=== PATIENT | female | born 1950 | race Caucasian/White ===

== ENCOUNTER → 2018-04-12 12:32 | Outpatient (CLI) | payer MEDICARE, OTHER, SELFPAY ==
[2018-04-12 16:13] LABS: Occult Blood,Stool Negative (Negative)
== END ==
PROVIDERS: Visit Provider Surgery
DX: R19.5 Other fecal abnormalities (principal)
CPT/HCPCS: 82272; G0328

== ENCOUNTER → 2019-10-07 07:34 | Outpatient (CLI) | payer MEDICARE, OTHER, SELFPAY ==
--- NOTE | 2019-10-07 07:40 | MM_ITS ---
PROCEDURE: MM DIG SCREENING MAMM BI W/CAD CLINICAL INDICATION: Routine Mamm Screening There is no personal or family history of breast cancer COMPARISON: DMSB DIG MAMM-SCREEN JACQUELINE from 10/05/2014 DMSB DIG MAMM-SCREEN JACQUELINE from 07/25/2016 DMSB DIG MAMM-SCREEN JACQUELINE W/CAD from 09/28/2017 TECHNIQUE: Standard CC and MLO images were obtained. R2 CAD reviewed. FINDINGS: Scattered fibroglandular densities are seen throughout both breast in the findings of bilateral and symmetrical. There is benign-appearing calcification right breast. There is minimal arterial calcification left breast. There are fatty replaced nodes in both axilla. There is no suspicious lesion and no suspicious microcalcifications. IMPRESSION: Fibrofatty parenchyma with no suspicious lesions seen BI-RAD Category: 2 Benign Finding(s) FOLLOW-UP: 1YR 1 Year Follow-up (A letter has been sent to the patient regarding results of the study.) Dictated by: Dr. Nick Kelly MD 10/08/2019 09:[address] Nick Kelly MD in [place] 10/08/2019 09:43
== END ==
PROVIDERS: PCP Internal Medicine; Visit Provider Obstetrics & Gynecology
DX: Z12.31 Encounter for screening mammogram for malignant neoplasm of breast (principal)
CPT/HCPCS: 77067

== ENCOUNTER → 2020-01-12 09:59 | Outpatient (CLI) | payer MEDICARE, OTHER, SELFPAY ==
[2020-01-12 10:31] LABS: Hemoglobin 13.6 g/dL (12.2-16.2)
== END ==
PROVIDERS: Visit Provider Surgery
DX: K92.1 Melena (principal)
CPT/HCPCS: 36415; 85014; 85018

== ENCOUNTER → 2020-01-13 12:23 | Outpatient (CLI) | payer MEDICARE, OTHER, SELFPAY ==
[2020-01-13 13:31] LABS: Occult Blood,Stool Negative (Negative)
== END ==
PROVIDERS: Visit Provider Surgery
DX: R19.5 Other fecal abnormalities (principal)
CPT/HCPCS: 82272; G0328

== ENCOUNTER → 2020-04-07 09:54 | Outpatient (CLI) | payer MEDICARE, OTHER, SELFPAY ==
[2020-04-07 11:31] LABS: Hematocrit 43.2 % (37.0-47.0); Hemoglobin 14.3 g/dL (12.2-16.2)
[2020-04-07 12:15] LABS: Coronavirus 19 IgG Antibody Negative (Negative); Coronavirus 19 IgM Antibody Negative (Negative)
[2020-04-08 11:35] LABS: Occult Blood,Stool Negative (Negative)
== END ==
PROVIDERS: Visit Provider Surgery
DX: Z01.818 Encounter for other preprocedural examination (principal)
CPT/HCPCS: 36415; 82272; 85014; 85018; 86328; G0328

== ENCOUNTER 2020-04-08 07:32 | Day surgery (SDC) | payer MEDICARE, OTHER, SELFPAY ==
--- NOTE | 2020-04-06 09:55 | SUR.PREOP ---
04/06/2020 @ 472--PHONE CALL MADE TO PATIENT. PATIENT UNDERSTANDS THAT LAB WORK AND COVID TESTING NEEDS TO BE COMPLETED @ 945 ON 04/07/2020. PATIENT UNDERSTANDS IF LAB WORK AND COVID-19 TESTS ARE NOT COMPLETED BY 12PM ON THAT DATE, THE SURGERY SCHEDULED WILL BE CANCELLED AND RESCHEDULED FOR ANOTHER TIME.
[2020-04-08 07:45] VITALS: BMI 38.9
[2020-04-08 07:52] VITALS: BP 145/72; PULSE 75; RESP 20; TEMP 36.5; O2SAT 98
--- NOTE | 2020-04-08 07:58 | HMH.ANESCL ---
[facility] Anesthesia Checklist - Patient Identification Patient Identification: Arm Band, Verbal (Name & ) - Structural Data Admitted From: Home Planned Operative Procedure/s: Colonoscopy Consent for Planned Operative Procedure(s) Verified: Yes Verified Documents: Surgical Consent, History and Physical - NPO Status Verified Time NPO: 00:00 - Chart Verification Results Verified: CBC - Additional verifications Anesthesia Reactions: No - Airway Assessment C-Spine Mobility Assessed: Yes TMJ Mobility Assessed: Yes Dentition: Good Dentition - Neurological Assessment Level of Consciousness: Awake, Alert, Appropriate, Follows Commands Hx Seizures: No Numbness or tingling in extremities: No - Anesthesia Plan Anesthesia Risk discussed: Yes Anesthesia Plan: Verified ASA Class: III Anesthesia Type: MAC [facility] History I have reviewed the patient's past medical history: Yes 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: Reports:: Gastroesophageal Reflux Disease(GERD), Hypertension *Have you ever received a pneumonia vaccine?: Yes *Have you received a flu vaccine this season?: Yes Other 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: Reports: Other Comment:: obesity, chronic back/leg pain Anesthesia experience/problems:: none Other Surgeries: Yes: Appendectomy, Colonoscopy, EGD, Tubal Ligation Amputation: No Fractures: No - *Social History Smoking Status: Never smoker Alcohol Intake: never Alcohol Intake Frequency:: other Substance Use Type: denies use *Occupational Status:: retired *Travel in the last 8 weeks: None Family Hx:: Cancer
[2020-04-08 08:12] VITALS: O2SAT 99
[2020-04-08 08:43] VITALS: BP 96/49; PULSE 64; RESP 18; TEMP 36.4; O2SAT 94
--- NOTE | 2020-04-08 08:48 | HMH.SCOPE ---
- Procedure: Date: 04/08/20 Procedure Performed:: Colonoscopy with polypectomy by means other than snare Indications:: Screening Performing Provider:: Clay Bradford MD Referring Provider:: . Sedation:: Monitored anesthesia care Procedure:: After informed consent was obtained the patient was taken to the endoscopy suite. Sedation ensued after the patient was transferred to the left lateral decubitus position. Pulse, blood pressure, and oxygen saturation were monitored throughout the procedure. Digital rectal exam revealed no significant abnormality. The colonoscope was placed in position. The entire colon was evaluated. The colonoscope was carefully removed and the patient was transferred to recovery in stable condition. Please see findings and specimens below for detail. Findings:: Bowel preparation fair to moderate Mild hemorrhoidal tags Fairly significant lack of relaxation Scattered sigmoid diverticulosis Polyps (see specimens) Specimens:: Adjacent sessile cecal polyps Adjacent polyps at 75 cm Recommendations:: Repeat colonoscopy is pending pathology but will likely be around 3 years secondary to polyps, slightly-limiting bowel preparation, and lack of relaxation. Complications:: No immediate Estimated blood obtained (mL): 1
[2020-04-08 08:54] VITALS: BP 101/63; PULSE 64; RESP 18; TEMP 36.4; O2SAT 95
[2020-04-08 09:04] VITALS: BP 105/59; PULSE 50; RESP 18; TEMP 36.4; O2SAT 96
[2020-04-08 09:25] VITALS: BP 113/56; PULSE 53; RESP 18; TEMP 36.4; O2SAT 96
== END 2020-04-08 09:25 | disposition home or self-care (01) ==
LOC: OUTP 07:34
PROVIDERS: PCP Internal Medicine; Visit Provider Surgery
PROC: 0DJD8ZZ Inspection of Lower Intestinal Tract, Via Natural or Artificial Opening Endoscopic (ICD-10-PCS; CPT 45380; principal; 2020-04-08 08:00)
DX: Z12.11 Encounter for screening for malignant neoplasm of colon (principal); K64.9 Unspecified hemorrhoids; K63.5 Polyp of colon; K57.30 Diverticulosis of large intestine without perforation or abscess without bleeding; Z80.0 Family history of malignant neoplasm of digestive organs; Z88.0 Allergy status to penicillin; Z88.8 Allergy status to other drugs, medicaments and biological substances; Z79.899 Other long term (current) drug therapy; Z79.82 Long term (current) use of aspirin; I10 Essential (primary) hypertension; Z90.49 Acquired absence of other specified parts of digestive tract
CPT/HCPCS: 45380; 88305

== ENCOUNTER → 2020-08-23 11:12 | Outpatient (CLI) | payer MEDICARE, OTHER, SELFPAY ==
--- NOTE | 2020-08-23 11:20 | XR_ITS ---
PROCEDURE: XR HIP LT 2-3V W/PELVIS CLINICAL INDICATION: L HIP PAIN COMPARISON: CR,DX BONE BONE DENSITOMETRY(HIP:LT SPINE from 02/02/2014 FINDINGS: There are mild osteoarthritic changes of the hips. No fracture or dislocation. No lytic or blastic change. IMPRESSION: Mild osteoarthritis of the hips Dictated by: Andrea Gore MD 08/23/2020 12:31 Andrea Gore MD in [place] 08/23/2020 12:31
--- NOTE | 2020-08-23 11:21 | XR_ITS ---
PROCEDURE: XR KNEE RT 3V CLINICAL INDICATION: RT KNEE PAIN COMPARISON: No exams were available for comparison FINDINGS: No fracture or dislocation. No lytic or blastic change. There is normal mineralization. There are severe osteoarthritic changes of the medial compartment with severe osteoarthritis of the patellofemoral joint. Prominent osteophytes are present about the knee joint Other findings:None. IMPRESSION: Severe osteoarthritis of the right knee. Dictated by: Andrea Gore MD 08/23/2020 12:30 Andrea Gore MD in [place] 08/23/2020 12:30
== END ==
PROVIDERS: PCP Internal Medicine; Visit Provider Internal Medicine
DX: M25.552 Pain in left hip (principal); M25.561 Pain in right knee
CPT/HCPCS: 73502; 73562

== ENCOUNTER → 2020-10-21 10:02 | Outpatient (CLI) | payer MEDICARE, OTHER, SELFPAY ==
--- NOTE | 2020-10-21 10:02 | MM_ITS ---
PROCEDURE: MM DIG SCREENING MAMM BI W/CAD Referring Doctor: Alfred Crow Patient Age:69Y CLINICAL INDICATION: screening xmg 69-year-old no hormones no new complaints noncontributory family history COMPARISON: MG DIGMAMMS MAMMOGRAM SCREEN-HYBRID CORN BREEDER N/C from 03/05/2008 MG DIGMAMMS MAMMOGRAM SCREEN-HYBRID CORN BREEDER N/C from 07/30/2009 MG DMSB DIGITAL MAMM-SCREEN BILATERAL from 10/25/2010 MG DMSB DIGITAL MAMM-SCREEN BILATERAL from 02/12/2012 MG DMSB DIG MAMM-SCREEN JACQUELINE from 09/03/2013 MG DMSB DIG MAMM-SCREEN JACQUELINE from 10/05/2014 MG DMSB DIG MAMM-SCREEN JACQUELINE from 07/25/2016 MG DMSB DIG MAMM-SCREEN JACQUELINE W/CAD from 09/28/2017 MG MM DIG SCREENING MAMM BI W/CAD from 10/07/2019 TECHNIQUE: Standard CC and MLO images were obtained. R2 CAD reviewed. Bilateral digital breast tomosynthesis included. Additional axillary CC views both breast FINDINGS: Minimal residual fibroglandular elements most evident at the retroareolar region. No new dominant or suspicious mass. No suspicious calcifications but Right breast no significant new findings Stable minor nodular densities since last year. Continue to suggest follow-up in 1 year. Left breast: Stable no new findings . Stable mild area of asymmetry at the lateral left breast the IMPRESSION: . No significant new findings Stable mammogram Ongoing annual follow-up mammogram recommended and should be encouraged BI-RAD Category: 2 Benign Finding(s) FOLLOW-UP: 1YR 1 Year Follow-up (A letter has been sent to the patient regarding results of the study.) Dictated by: Arron Whitten MD 10/21/2020 11:34 Arron Whitten MD in [place] 10/21/2020 11:34
== END ==
PROVIDERS: PCP Internal Medicine; Visit Provider Nurse Practitioner Obstetrics & Gynecology
DX: Z12.31 Encounter for screening mammogram for malignant neoplasm of breast (principal)
CPT/HCPCS: 77063; 77067

== ENCOUNTER → 2020-12-10 09:39 | Outpatient (CLI) | payer MEDICARE, OTHER, SELFPAY ==
[2020-12-10 10:31] LABS: Basophils # 0.1 K/mm3 (0-0.2); Basophils % 1.1 % (0.1-2.0); Eosinophils # 0.4 K/mm3 (0.0-0.4); Eosinophils % 5.1 % (0.1-12.0); Hematocrit 46.9 % (37.0-47.0); Hemoglobin 15.6 g/dL (12.2-16.2); Lymphocytes # 2.1 K/mm3 (0.7-4.5); Lymphocytes % 29.9 % (10-50); Mean Corpuscular HGB Conc 33.4 g/dL (31.8-35.4); Mean Corpuscular Hemoglobin 31.1 pg (27.0-31.2); Mean Platelet Volume 7.8 fl (7.4-10.4); Monocytes # 0.4 K/mm3 (0.1-1.0); Monocytes % 5.4 % (1.7-9.3); Neutrophils # 4.2 K/mm3 (1.8-7.8); Neutrophils % 58.4 % (37.0-80.0); Platelet Count 271 K/mm3 (142-424); Red Blood Count 5.04 M/mm3 (4.20-5.40); Red Cell Distribution Width 13.9 % (11.5-17.5); White Blood Count 7.1 K/mm3 (4.8-10.8)
[2020-12-10 10:46] LABS: Alanine Aminotransferase 21 U/L (12-78); Albumin Level 4.2 g/dl (3.5-5.0); Albumin/Globulin Ratio 1.4 (1.1-1.8); Alkaline Phosphatase 66 U/L (38-126); Anion Gap 11.3 mEq/L (5-15); Aspartate Amino Transferase 25 U/L (14-36); Bilirubin,Total 0.7 mg/dl (0.2-1.3); Blood Urea Nitrogen 20 mg/dl (7-17); Calcium 9.7 mg/dl (8.4-10.2); Carbon Dioxide 31 mmol/L (22.0-30.0); Chloride 104 mmol/L (98-107); Chol/HDL Ratio 3.4 (1-3.5); Cholesterol 172 mg/dl (140-200); Estimated Glomerular Filt Rate 71 ml/min (>60); GFR (African American) 86 ML/MIN (>60); Globulin 3.1 g/dL (1.3-3.2); Glucose 103 mg/dl (74-100); HDL Cholesterol 50 mg/dl (40-60); Potassium 4.3 mmoL/L (3.5-5.1); Sodium 142 mmol/L (136-145); Total Protein,Serum 7.3 g/dl (6.3-8.2); Triglycerides 103 mg/dl (30-150); VLDL Cholesterol 21 mg/dL (0-40)
[2020-12-10 10:57] LABS: Direct LDL Cholesterol 91.23 mg/dL (100-129)
== END ==
PROVIDERS: Visit Provider Internal Medicine
DX: I10 Essential (primary) hypertension (principal); E78.5 Hyperlipidemia, unspecified; E03.9 Hypothyroidism, unspecified; M15.0 Primary generalized (osteo)arthritis
CPT/HCPCS: 36415; 80053; 80061; 84443; 85025

== ENCOUNTER 2021-02-28 17:14 | Emergency (ER) | payer MEDICARE, OTHER, SELFPAY ==
--- NOTE | 2021-02-28 17:42 | XR_ITS ---
PROCEDURE: XR HIP RT 2-3V W/PELVIS CLINICAL INDICATION: TWISTED HIP Pain COMPARISON: CR XR HIP LT 2-3V W/PELVIS from 08/23/2020 FINDINGS: No fracture or dislocation is evident. No significant degenerative change. No lytic or blastic change. Unremarkable soft tissues. There is some sclerosis involving the basicervical region of the right femoral neck nonspecific IMPRESSION: No acute findings. Dictated by: Andrea Gore MD 02/28/2021 19:22 Andrea Gore MD in [place] 02/28/2021 19:22
[2021-02-28 18:19] VITALS: RESP 14; TEMP 37; O2SAT 99; BMI 39.4
--- NOTE | 2021-02-28 19:11 | HMH.EDUTC ---
[facility] [place] [facility] [place] Clinical Impression: Right hip pain Fall Qualifiers: Encounter type: initial encounter Qualified Code(s): W19.XXXA - Unspecified fall, initial encounter Disposition: Home, Self-Care Condition on Discharge: Good Instructions: DI for Hip Pain Additional Instructions: Rest the extremity, apply ice for 15 minutes as tolerated three or four times per day, Elevate the extremity as tolerated while you are resting. Take ibuprofen for pain. I sent in a prescription to your pharmacy. Follow up with Dr. Mcgee (orthopedics). Sometimes there can be fractures that don't show up well on the first set of x-rays. So, you should follow up if you continue to have symptoms. I put in a referral but you need to call her office and schedule an appointment. Follow up with your regular doctor. GO TO THE ER FOR ANY WORSENING SYMPTOMS Referrals: Rk Sanderson [Primary Care Provider] - Pat Mcgee MD [Physician] - Time of Disposition: 19:13 Medical Decision Making - Medical Records Medical records reviewed: No: I reviewed the patient's medical records. - [place] Inquiry Pt receiving controlled substance: No Vital Signs: 02/28/21 18:19 02/28/21 19:18 Temperature 98.6 F 98.5 F Temperature Source Oral Oral Pulse Rate 65 Respiratory Rate 14 16 Blood Pressure 160/58 H 02 Sat by Pulse Oximetry 99 Oxygen Delivery Method Room Air - Radiology Data #1 Image(s): Hip Image Reviewed: Yes I reviewed the patient's radiology image, Yes I have reviewed radiologist's interpretation Preliminary Findings: No Fracture Seen PROCEDURE: XR HIP RT 2-3V W/PELVIS CLINICAL INDICATION: TWISTED HIP Pain COMPARISON: CR XR HIP LT 2-3V W/PELVIS from 08/23/2020 FINDINGS: No fracture or dislocation is evident. No significant degenerative change. No lytic or blastic change. Unremarkable soft tissues. There is some sclerosis involving the basicervical region of the right femoral neck nonspecific IMPRESSION: No acute findings. Dictated by: Andrea Gore MD 02/28/2021 19:22 Andrea Gore MD in [place] 02/28/2021 19:22 [facility] [place] [facility] [place] HPI - General Stated complaint: AO 1630 fall injured hip Time Seen by Provider: 02/28/21 18:25 Mode of Arrival: Ambulatory Source of Information: Patient Limitations: No Limitations Description of Symptoms (Recalled from Triage Doc. by RN): tripped and twisted at right hip HEENT Symptoms (Recalled from RN notes): No Resp Symptoms (Recalled from RN notes): No Skin Symptoms (Recalled from RN notes): No MS Symptoms (Recalled from RN notes): Yes Functional Status (Recalled from RN notes): na - History of Present Illness Provider Complaint: She states that she fell about 30 minutes ferry [place] [employer]. She came down on her right hip. She has had right hip pain since. She states it hurts worse to walk or bear weight on the hip. - Related Data Home Medications Medication Instructions Recorded Confirmed amlodipine 5 mg tablet 5 mg PO ONCE 04/10/18 04/14/20 aspirin 81 mg tablet,delayed 81 mg PO ONCE 04/10/18 04/14/20 release atenolol 50 mg tablet 50 mg PO ONCE 04/10/18 04/14/20 hydrocodone bitartrate 10 mg 10 mg PO Q12H 04/10/18 04/14/20 capsule, oral only, extended rel 12 hr meloxicam 15 mg tablet 15 mg PO ONCE 04/10/18 04/14/20 oxybutynin chloride 10 mg 10 mg PO ONCE 04/10/18 04/14/20 tablet,extended release 24 hr famotidine 20 mg tablet 20 mg PO DAILY #180 tab 10/02/19 04/14/20 Allergies Allergy/AdvReac Type Severity Reaction Status Date / Time enoxaparin [From LOVENOX] Allergy Unknown I-HIVES Verified 04/14/20 09:58 Penicillins [PENICILLINS] Allergy Unknown I-RASH Verified 04/14/20 09:58 rofecoxib [From VIOXX] Allergy Unknown SWELLING Verified 04/14/20 09:58 - Worker's Comp Is this a Worker's Comp case?: No H History - Hepatitis A Screen Drug use history?: No High risk sexual behaviors?: No History of sexually transmitted infection?: No Cur
[2021-02-28 19:18] VITALS: BP 160/58; PULSE 65; RESP 16; TEMP 36.9; O2SAT 97
== END 2021-02-28 19:19 | disposition home or self-care (01) ==
PROVIDERS: Emergency Provider Nurse Practitioner Family; PCP Internal Medicine
DX: M25.551 Pain in right hip (principal); W01.0XXA Fall on same level from slipping, tripping and stumbling without subsequent striking against object, initial encounter; Y92.9 Unspecified place or not applicable; K21.9 Gastro-esophageal reflux disease without esophagitis; I10 Essential (primary) hypertension; Z88.0 Allergy status to penicillin; Z79.899 Other long term (current) drug therapy
CPT/HCPCS: G0463; 73502; 99202

== ENCOUNTER → 2021-10-03 10:06 | Outpatient (CLI) | payer MEDICARE, OTHER, SELFPAY ==
[2021-10-03 10:21] LABS: Microscopic, Urine URINE MICROSCOPIC (MICROSCOPIC)
--- NOTE | 2021-10-03 10:36 | ECG_ITS ---
APPROVED REPORT Exam: Resting ECG HR:49 bpm ECG Measurements Heart Rate 49 AXES [place] 186 P -6 QRSd 96 QRS -23 QT 436 T -4 QTc 393 Conclusion Marked sinus bradycardia Poor R Wave Progression Abnormal ECG Electronically signed by : Rk Sanderson MD 10/21/2021 16:22:09
[2021-10-03 10:45] LABS: Basophils # 0.1 K/mm3 (0-0.2); Basophils % 1.4 % (0.1-2.0); Eosinophils # 0.5 K/mm3 (0.0-0.4); Eosinophils % 6.7 % (0.1-12.0); Hematocrit 47.2 % (37.0-47.0); Hemoglobin 15.4 g/dL (12.2-16.2); Lymphocytes % 27.6 % (10-50); Mean Corpuscular HGB Conc 32.6 g/dL (31.8-35.4); Mean Corpuscular Hemoglobin 30.9 pg (27.0-31.2); Mean Corpuscular Volume 94.8 fl (81-99); Mean Platelet Volume 8.7 fl (7.4-10.4); Monocytes # 0.4 K/mm3 (0.1-1.0); Monocytes % 5.4 % (1.7-9.3); Neutrophils # 4.2 K/mm3 (1.8-7.8); Neutrophils % 58.9 % (37.0-80.0); Platelet Count 294 K/mm3 (142-424); Red Blood Count 4.98 M/mm3 (4.20-5.40); Red Cell Distribution Width 13.6 % (11.5-17.5); White Blood Count 7.1 K/mm3 (4.8-10.8)
[2021-10-03 10:49] LABS: Appearance,Urine CLEAR (Clear); Blood, Urine Negative (Negative); Color,Urine YELLOW (Yellow); Glucose,Urine (UA) Negative (Negative); Ketones,Urine TRACE (Negative); Leukocyte Esterase,Urine 1+ (Negative); Nitrate,Urine POSITIVE (Negative); PH,Urine 5.5 (5.0-8.5); Protein,Urine Negative (Negative); Specific Gravity, Urine >= 1.030 (1.005-1.030); Urobilinogen,Urine 0.2 EU/dl (0.2)
[2021-10-03 10:50] LABS: Bilirubin,Urine 1+ (Negative)
[2021-10-03 10:58] LABS: Activated Partial Thrombo Time 29.2 seconds (22.8-30.6); INR 0.96 (0.9-1.1); Prothrombin Time 10.9 seconds (10.1-12.5)
[2021-10-03 11:25] LABS: Hemoglobin A1C 5.8 % (4.0-6.0)
[2021-10-03 11:31] LABS: Bacteria,Urine 2+ /lpf
[2021-10-03 11:37] LABS: Alanine Aminotransferase 19 U/L (12-78); Albumin Level 4.2 g/dl (3.5-5.0); Albumin/Globulin Ratio 1.5 (1.1-1.8); Alkaline Phosphatase 58 U/L (38-126); Anion Gap 9.1 mEq/L (5-15); Aspartate Amino Transferase 31 U/L (14-36); Bilirubin,Total 0.6 mg/dl (0.2-1.3); Blood Urea Nitrogen 21 mg/dl (7-17); Calcium 9.5 mg/dl (8.4-10.2); Carbon Dioxide 33 mmol/L (22.0-30.0); Chloride 105 mmol/L (98-107); Estimated Glomerular Filt Rate 71 ml/min (>60); GFR (African American) 86 ML/MIN (>60); Globulin 2.8 g/dL (1.3-3.2); Glucose 98 mg/dl (74-100); Potassium 4.1 mmoL/L (3.5-5.1); Sodium 143 mmol/L (136-145)
[2021-10-25 14:29] LABS: Nicotine <1.0
[2021-10-25 14:30] LABS: Cotinine <1.0
== END ==
PROVIDERS: Visit Provider Internal Medicine
DX: Z01.818 Encounter for other preprocedural examination (principal); I10 Essential (primary) hypertension; N32.81 Overactive bladder; M17.11 Unilateral primary osteoarthritis, right knee; Z51.81 Encounter for therapeutic drug level monitoring; B96.20 Unspecified Escherichia coli [E. coli] as the cause of diseases classified elsewhere; B95.62 Methicillin resistant Staphylococcus aureus infection as the cause of diseases classified elsewhere; Z79.899 Other long term (current) drug therapy
CPT/HCPCS: 36415; 80053; 80323; 81001; 83036; 85025; 85610; 85730; 87081; 87086; 87088; 87186; 93005

== ENCOUNTER → 2021-10-17 10:19 | Outpatient (CLI) | payer MEDICARE, OTHER, SELFPAY | PROVIDERS: Visit Provider Internal Medicine | DX: A49.02 Methicillin resistant Staphylococcus aureus infection, unspecified site (principal) | CPT/HCPCS: 87081 ==

== ENCOUNTER → 2021-10-24 09:45 | Outpatient (CLI) | payer MEDICARE, OTHER, SELFPAY ==
--- NOTE | 2021-10-24 09:46 | MM_ITS ---
PROCEDURE INFORMATION: Exam: MG Bilateral Screening 3D Mammography Exam date and time: 10/24/2021 9:46 AM Age: 70 years old Clinical indication: Routine screening mammogram TECHNIQUE: Imaging protocol: Bilateral screening tomosynthesis and 2D mammography including computer-aided detection (CAD) when performed. COMPARISON: 1. MG MM DIG SCREENING MAMM BI W/CAD 10/21/2020 10:10 AM 2. MG MM DIG SCREENING MAMM BI W/CAD 10/07/2019 8:12 AM FINDINGS: MAMMOGRAPHY: Breast composition: The breast tissue is composed of scattered areas of fibroglandular density. Mass: None. Architectural distortion: None. Calcifications: No suspicious calcifications. Asymmetric density: None. Skin thickening: None. Axillary adenopathy: None. IMPRESSION: No mammographic evidence of malignancy. Annual screening is recommended unless otherwise clinically indicated. ASSESSMENT: BI-RADS Category 1: Negative
== END ==
PROVIDERS: PCP Internal Medicine; Visit Provider Nurse Practitioner Obstetrics & Gynecology
DX: Z12.31 Encounter for screening mammogram for malignant neoplasm of breast (principal)
CPT/HCPCS: 77063; 77067

== ENCOUNTER → 2021-10-25 15:51 | Outpatient (CLI) | payer MEDICARE, OTHER, SELFPAY ==
[2021-10-25 15:59] LABS: Microscopic, Urine URINE MICROSCOPIC (MICROSCOPIC)
[2021-10-25 17:14] LABS: Appearance,Urine CLEAR (Clear); Bilirubin,Urine Negative (Negative); Blood, Urine Negative (Negative); Color,Urine YELLOW (Yellow); Glucose,Urine (UA) Negative (Negative); Ketones,Urine Negative (Negative); Leukocyte Esterase,Urine Negative (Negative); Nitrate,Urine POSITIVE (Negative); PH,Urine 5.5 (5.0-8.5); Protein,Urine Negative (Negative); Specific Gravity, Urine 1.025 (1.005-1.030); Urobilinogen,Urine 0.2 EU/dl (0.2)
[2021-10-25 18:37] LABS: Bacteria,Urine 3+ /lpf; WBC,Urine Occasional #/hpf (0-3)
[2021-10-25 18:38] LABS: 25-OH Vitamin D, Total 27.4 ng/mL (30-100)
== END ==
PROVIDERS: Visit Provider Internal Medicine
DX: Z01.818 Encounter for other preprocedural examination (principal); E55.9 Vitamin D deficiency, unspecified; R82.90 Unspecified abnormal findings in urine; B96.20 Unspecified Escherichia coli [E. coli] as the cause of diseases classified elsewhere
CPT/HCPCS: 36415; 81001; 82306; 87086; 87088; 87186

== ENCOUNTER → 2021-12-09 15:04 | Outpatient (CLI) | payer MEDICARE, OTHER, SELFPAY ==
[2021-12-09 16:38] LABS: Microscopic, Urine URINE MICROSCOPIC (MICROSCOPIC)
[2021-12-09 19:20] LABS: Appearance,Urine CLEAR (Clear); Blood, Urine 1+ (Negative); Color,Urine YELLOW (Yellow); Glucose,Urine (UA) Negative (Negative); Ketones,Urine TRACE (Negative); Leukocyte Esterase,Urine 2+ (Negative); Nitrate,Urine Negative (Negative); PH,Urine 5.5 (5.0-8.5); Protein,Urine TRACE (Negative); Specific Gravity, Urine >= 1.030 (1.005-1.030); Urobilinogen,Urine 0.2 EU/dl (0.2)
[2021-12-09 19:30] LABS: Bilirubin,Urine 1+ (Negative)
[2021-12-09 19:33] LABS: Bacteria,Urine 1+ /lpf; RBC,Urine 20-50 #/hpf (0-3); WBC,Urine 50-100 #/hpf (0-3)
== END ==
PROVIDERS: Visit Provider Internal Medicine
DX: N39.0 Urinary tract infection, site not specified (principal); B96.20 Unspecified Escherichia coli [E. coli] as the cause of diseases classified elsewhere
CPT/HCPCS: 81001; 87086; 87088; 87186

== ENCOUNTER → 2022-04-12 16:49 | Outpatient (CLI) | payer MEDICARE, OTHER, SELFPAY ==
[2022-04-12 17:50] LABS: Chloride 105 mmol/L (98-107); Potassium 4.4 mmoL/L (3.5-5.1); Sodium 138 mmol/L (136-145)
[2022-04-12 17:52] LABS: Alanine Aminotransferase 17 U/L (12-78); Alkaline Phosphatase 74 U/L (38-126); Aspartate Amino Transferase 22 U/L (14-36); Bilirubin,Total 0.4 mg/dl (0.2-1.3); Blood Urea Nitrogen 24 mg/dl (7-17); Estimated Glomerular Filt Rate 71 ml/min (>60); GFR (African American) 85 ML/MIN (>60)
[2022-04-12 17:53] LABS: Albumin/Globulin Ratio 1.5 (1.1-1.8); Anion Gap 10.4 mEq/L (5-15); Calcium 9.6 mg/dl (8.4-10.2); Carbon Dioxide 27 mmol/L (22.0-30.0); Chol/HDL Ratio 4.8 (1-3.5); Cholesterol 159 mg/dl (140-200); Globulin 2.6 g/dL (1.3-3.2); Glucose 108 mg/dl (74-100); HDL Cholesterol 33 mg/dl (40-60); Total Protein,Serum 6.6 g/dl (6.3-8.2); Triglycerides 182 mg/dl (30-150); VLDL Cholesterol 36 mg/dL (0-40)
[2022-04-12 18:04] LABS: Direct LDL Cholesterol 86.48 mg/dL (100-129)
[2022-04-12 18:16] LABS: Basophils # 0.1 K/mm3 (0-0.2); Basophils % 1.3 % (0.1-2.0); Eosinophils # 0.4 K/mm3 (0.0-0.4); Eosinophils % 4.6 % (0.1-12.0); Hematocrit 42.9 % (37.0-47.0); Lymphocytes # 3.2 K/mm3 (0.7-4.5); Lymphocytes % 42.3 % (10-50); Mean Corpuscular HGB Conc 32.7 g/dL (31.8-35.4); Mean Corpuscular Hemoglobin 30.2 pg (27.0-31.2); Mean Corpuscular Volume 92.6 fl (81-99); Mean Platelet Volume 8.6 fl (7.4-10.4); Monocytes # 0.4 K/mm3 (0.1-1.0); Monocytes % 5.9 % (1.7-9.3); Neutrophils # 3.5 K/mm3 (1.8-7.8); Neutrophils % 45.9 % (37.0-80.0); Platelet Count 313 K/mm3 (142-424); Red Blood Count 4.63 M/mm3 (4.20-5.40); Red Cell Distribution Width 13.8 % (11.5-17.5); White Blood Count 7.6 K/mm3 (4.8-10.8)
== END ==
LOC: LAB 16:49 → LAB.DROPOF 16:53
PROVIDERS: PCP Internal Medicine; Visit Provider Internal Medicine
DX: I10 Essential (primary) hypertension (principal); I83.893 Varicose veins of bilateral lower extremities with other complications; K21.9 Gastro-esophageal reflux disease without esophagitis; M17.0 Bilateral primary osteoarthritis of knee; N32.81 Overactive bladder
CPT/HCPCS: 80053; 80061; 85025

== ENCOUNTER 2022-09-18 17:21 | Emergency (ER) | payer MEDICARE, OTHER, SELFPAY ==
[2022-09-18 17:23] VITALS: BP 141/84; PULSE 100; RESP 18; TEMP 37.4; O2SAT 95; BMI 34.3
--- NOTE | 2022-09-18 17:31 | XR_ITS ---
PROCEDURE INFORMATION: Exam: XR Chest Exam date and time: 09/18/2022 5:54 PM Age: 71 years old Clinical indication: Shortness of breath; Additional info: Sob/cp TECHNIQUE: Imaging protocol: Radiologic exam of the chest. Views: 1 view. COMPARISON: No relevant prior studies available. FINDINGS: Lungs: No evidence of pneumonia or interstitial edema. Punctate granuloma in right lower lobe Pleural spaces: Unremarkable. No pleural effusion. No pneumothorax. Heart/Mediastinum: Unremarkable. No cardiomegaly. Bones/joints: Unremarkable. IMPRESSION: No evidence of pneumonia or interstitial edema.
--- NOTE | 2022-09-18 17:45 | PC.NURSE ---
XR AT BEDSIDE
[2022-09-18 17:52] VITALS: BP 130/65; PULSE 101; RESP 18; O2SAT 95
--- NOTE | 2022-09-18 17:54 | HMH.EDGENADL ---
Discharge Plan Disposition Patient Disposition: Home, Self-Care Condition: Good Prescriptions Prescriptions: New promethazine 25 mg suppository 25 mg GA Q6H PRN (Reason: sleep) Qty: 12 0RF No Action tramadol 50 mg tablet 50 mg PO Q6H PRN oxycodone 5 mg tablet 5 mg PO Q4H PRN hydrocodone-acetaminophen 7.5-325 mg tablet 1 tab PO Q6H PRN gabapentin 300 mg capsule 300 mg PO HS dimenhydrinate 50 mg tablet 50 mg PO .prn cholecalciferol (vitamin D3) 25 mcg (1,000 unit) capsule 25 mcg PO DAILY B complex-C 500 mg-folic 400 mcg-zinc 24 mg-copper 3 mg-vit E tablet 500 mg-400 mcg- 24 mg-3 mg tablet PO amlodipine 5 mg tablet 5 mg PO ONCE aspirin [Adult Low Dose Aspirin] 81 mg tablet,delayed release (DR/EC) 81 mg PO ONCE meloxicam 15 mg tablet 15 mg PO ONCE atenolol 50 mg tablet 50 mg PO ONCE oxybutynin chloride 10 mg tablet extended release 24hr 10 mg PO ONCE hydrocodone bitartrate 10 mg capsule, oral only, ER 12hr 10 mg PO Q12H famotidine 20 mg tablet 20 mg PO DAILY Qty: 180 Label Comments: TAKE 1 TABLET BY MOUTH TWICE DAILY BEFORE MEAL(S) FOR HEARTBURN Referrals Follow up/Referrals: Rk Sanderson MD [Primary Care Provider] - See instructions Clinical Impressions Clinical Impression: Acute viral syndrome, Nausea & vomiting Instructions Patient Instructions: DI for Diarrhea and Traveler's Diarrhea -- Adult, DI for Diarrhea and Traveler's Diarrhea -- Child, DI for Nausea -- Adult, DI for Nausea -- Child Discharge ED Provider: Perfecto Diaz General Adult HPI General Chief complaint: Nausea/Vomiting/Diarrhea Stated complaint: FEVER,COUGH,britt wEAKNESS VOMITING Time Seen by Provider: 09/18/22 17:30 History of Present Illness HPI narrative: 71-year-old female presents with generalized fatigue, lower back pain, fever, cough, nausea, vomiting ongoing for 2 to 3 days. States she had been treated for urinary tract infection and had been doing well on Macrobid the last couple of days when she suddenly developed severe lower back pain. She thought that it might have been COVID or flu but then became concerned about worsening of urinary tract infection. She denies hematuria, worsening dysuria. She has not been able to keep down anything p.o. for the past few days, has not been able to take even Zofran for the nausea as she seems to throw up immediately with any attempted p.o. intake. She denies any abdominal pain, cough, known sick contacts. Related Data Home Medications Medication Instructions Recorded Confirmed amlodipine 5 mg tablet 5 mg PO ONCE bp 04/10/18 11/22/21 aspirin 81 mg tablet,delayed 81 mg PO ONCE heart. 04/10/18 11/22/21 release (Adult Low Dose Aspirin) atenolol 50 mg tablet 50 mg PO ONCE bp 04/10/18 11/22/21 hydrocodone bitartrate 10 mg 10 mg PO Q12H Pain 04/10/18 11/22/21 capsule, oral only, extended rel 12 hr meloxicam 15 mg tablet 15 mg PO ONCE inflammation 04/10/18 11/22/21 oxybutynin chloride 10 mg 10 mg PO ONCE bladder 04/10/18 11/22/21 tablet,extended release 24 hr famotidine 20 mg tablet 20 mg PO DAILY stomach #180 tabs 10/02/19 11/22/21 B complex-C 500 mg-folic 400 tab PO 11/22/21 mcg-zinc 24 mg-copper 3 mg-vit E tablet (Stress B-Complex) cholecalciferol (vitamin D3) 25 25 mcg PO DAILY 11/22/21 11/22/21 mcg (1,000 unit) capsule dimenhydrinate 50 mg tablet 50 mg PO .prn 11/22/21 11/22/21 gabapentin 300 mg capsule 300 mg PO HS 11/22/21 11/22/21 hydrocodone 7.5 mg-acetaminophen 1 tab PO Q6H PRN 11/22/21 11/22/21 325 mg tablet oxycodone 5 mg tablet 5 mg PO Q4H PRN 11/22/21 11/22/21 tramadol 50 mg tablet 50 mg PO Q6H PRN 11/22/21 11/22/21 Previous Rx's Medication Instructions Recorded promethazine 25 mg rectal 25 mg GA Q6H PRN sleep #12 ea 09/18/22 suppository Allergies Allergy/AdvReac Type Severity Reaction Status Date / Time enoxaparin [From LOVENOX] Allergy
--- NOTE | 2022-09-18 17:55 | PC.NURSE ---
ED MD AT BEDSIDE
--- NOTE | 2022-09-18 18:17 | PC.NURSE ---
PT MEDICATED PER EMAR, WARM BLANKET PROVIDED. FAMILY AT BEDSIDE
[2022-09-18 18:21] LABS: Alanine Aminotransferase 115 U/L (12-78); Albumin/Globulin Ratio 1.2 (1.1-1.8); Alkaline Phosphatase 374 U/L (38-126); Anion Gap 17.4 mEq/L (5-15); Aspartate Amino Transferase 87 U/L (14-36); Bilirubin,Total 1.3 mg/dl (0.2-1.3); Blood Urea Nitrogen 27 mg/dl (7-17); Calcium 9.7 mg/dl (8.4-10.2); Carbon Dioxide 29 mmol/L (22.0-30.0); Chloride 99 mmol/L (98-107); Creatinine Clearance Estimated 73 mL/min (50-200); Estimated Glomerular Filt Rate 55 ml/min (>60); GFR (African American) 66 ML/MIN (>60); Globulin 3.4 g/dL (1.3-3.2); Glucose 107 mg/dl (74-100); Potassium 3.4 mmoL/L (3.5-5.1); Sodium 142 mmol/L (136-145); Total Protein,Serum 7.4 g/dl (6.3-8.2)
[2022-09-18 18:31] VITALS: BP 127/59; PULSE 91; RESP 18; O2SAT 95
[2022-09-18 18:48] LABS: Basophils % 0.2 % (0.1-2.0); Eosinophils # 0.5 K/mm3 (0.0-0.4); Eosinophils % 6.1 % (0.1-12.0); Hematocrit 46.5 % (37.0-47.0); Hemoglobin 14.6 g/dL (12.2-16.2); Lymphocytes # 0.4 K/mm3 (0.7-4.5); Lymphocytes % 5.5 % (10-50); Mean Corpuscular HGB Conc 31.5 g/dL (31.8-35.4); Mean Corpuscular Hemoglobin 30.1 pg (27.0-31.2); Mean Corpuscular Volume 95.6 fl (81-99); Mean Platelet Volume 7.9 fl (7.4-10.4); Monocytes # 0.2 K/mm3 (0.1-1.0); Monocytes % 2.1 % (1.7-9.3); Neutrophils # 6.6 K/mm3 (1.8-7.8); Neutrophils % 86.1 % (37.0-80.0); Platelet Count 204 K/mm3 (142-424); Red Blood Count 4.86 M/mm3 (4.20-5.40); Red Cell Distribution Width 12.7 % (11.5-17.5); White Blood Count 7.7 K/mm3 (4.8-10.8)
[2022-09-18 18:51] LABS: MANUAL DIFFERENTIAL MANUAL DIFFERENTIAL (MANUAL DIFF)
[2022-09-18 19:06] LABS: Eosinophils % 3 % (0-3); Lymphocytes % 8 % (10-50); Monocytes % 4 % (2-9); Neutrophils % 85 % (42-76); Total Cells Counted 100
[2022-09-18 19:07] LABS: Platelet Estimate Normal; Tear Drop Cells 1+
[2022-09-18 19:11] LABS: Coronavirus 19, PCR Not Detected (NotDetected); Influenza A, PCR Not Detected (NotDetected); Influenza B, PCR Not Detected (NotDetected)
[2022-09-18 20:41] VITALS: BP 135/71; PULSE 108; RESP 16; TEMP 37.1; O2SAT 93
== END 2022-09-18 20:53 | disposition home or self-care (01) ==
PROVIDERS: Emergency Provider Emergency Medicine; PCP Internal Medicine
DX: R11.2 Nausea with vomiting, unspecified (principal); B34.9 Viral infection, unspecified; Z87.440 Personal history of urinary (tract) infections
CPT/HCPCS: 71045; 80053; 85007; 85025; 99284; C9803; J2405; U0003; U0005

== ENCOUNTER → 2022-09-20 14:45 | Outpatient (CLI) | payer MEDICARE, OTHER, SELFPAY ==
[2022-09-20 14:56] LABS: Microscopic, Urine URINE MICROSCOPIC (MICROSCOPIC)
--- NOTE | 2022-09-20 15:12 | XR_ITS ---
FINAL REPORT TECHNIQUE: Chest PA & Lateral CLINICAL HISTORY: Unexplained cough COMPARISON: 09/18/2022 FINDINGS: 2 views of the chest were performed. The heart size is normal. The mediastinum is within normal limits. There is no acute cardiopulmonary process. There are no pleural effusions. There is no pneumothorax. The bony thorax appears intact. IMPRESSION: No acute cardiopulmonary process. Reviewed, Interpreted and Dictated by Lavell Cruz MD Transcribed by Juliet Mcintosh Authenticated and [facility]
[2022-09-20 15:29] LABS: Appearance,Urine CLEAR (Clear); Blood, Urine Negative (Negative); Color,Urine AMBER (Yellow); Glucose,Urine (UA) Negative (Negative); Ketones,Urine Negative (Negative); Leukocyte Esterase,Urine Negative (Negative); Nitrate,Urine Negative (Negative); PH,Urine 5.5 (5.0-8.5); Protein,Urine TRACE (Negative); Specific Gravity, Urine >= 1.030 (1.005-1.030)
[2022-09-20 15:34] LABS: Chloride 103 mmol/L (98-107); Potassium 3.5 mmoL/L (3.5-5.1); Sodium 142 mmol/L (136-145)
[2022-09-20 15:37] LABS: Anion Gap 13.5 mEq/L (5-15); Blood Urea Nitrogen 21 mg/dl (7-17); Calcium 9.5 mg/dl (8.4-10.2); Carbon Dioxide 29 mmol/L (22.0-30.0); Estimated Glomerular Filt Rate 71 ml/min (>60); GFR (African American) 85 ML/MIN (>60); Glucose 104 mg/dl (74-100)
[2022-09-20 15:41] LABS: Basophils # 0.1 K/mm3 (0-0.2); Basophils % 1.2 % (0.1-2.0); Eosinophils # 1.5 K/mm3 (0.0-0.4); Eosinophils % 15.6 % (0.1-12.0); Hematocrit 42.8 % (37.0-47.0); Hemoglobin 13.6 g/dL (12.2-16.2); Lymphocytes # 2.1 K/mm3 (0.7-4.5); Lymphocytes % 22.2 % (10-50); Mean Corpuscular HGB Conc 31.7 g/dL (31.8-35.4); Mean Corpuscular Hemoglobin 30.1 pg (27.0-31.2); Mean Platelet Volume 8.4 fl (7.4-10.4); Monocytes # 0.3 K/mm3 (0.1-1.0); Monocytes % 2.9 % (1.7-9.3); Neutrophils # 5.5 K/mm3 (1.8-7.8); Neutrophils % 58.1 % (37.0-80.0); Platelet Count 262 K/mm3 (142-424); Red Cell Distribution Width 13.7 % (11.5-17.5); White Blood Count 9.4 K/mm3 (4.8-10.8)
[2022-09-20 16:18] LABS: Erythrocyte Sedimentation Rate 76 mm/hr (0-30)
[2022-09-20 16:20] LABS: Bilirubin,Urine 1+ (Negative)
[2022-09-20 16:24] LABS: Squamous Epithelial Cell,Urine Occasional #/hpf (0-5)
[2022-09-20 19:32] LABS: C-Reactive Protein 118.6 mg/L (0-4)
== END ==
PROVIDERS: PCP Internal Medicine; Visit Provider Internal Medicine
DX: R50.81 Fever presenting with conditions classified elsewhere (principal); R05.9 Cough, unspecified; N39.0 Urinary tract infection, site not specified
CPT/HCPCS: 36415; 71046; 80048; 81001; 85025; 85651; 86140; 87040

== ENCOUNTER → 2022-10-20 18:16 | Outpatient (CLI) | payer MEDICARE, OTHER, SELFPAY ==
[2022-10-20 19:02] LABS: Alanine Aminotransferase 18 U/L (12-78); Albumin Level 3.9 g/dl (3.5-5.0); Albumin/Globulin Ratio 1.6 (1.1-1.8); Alkaline Phosphatase 96 U/L (38-126); Anion Gap 7.3 mEq/L (5-15); Aspartate Amino Transferase 25 U/L (14-36); Bilirubin,Total 0.3 mg/dl (0.2-1.3); Blood Urea Nitrogen 22 mg/dl (7-17); Calcium 9.3 mg/dl (8.4-10.2); Carbon Dioxide 30 mmol/L (22.0-30.0); Chloride 107 mmol/L (98-107); Chol/HDL Ratio 4.8 (1-3.5); Cholesterol 164 mg/dl (140-200); Estimated Glomerular Filt Rate 44 ml/min (>60); GFR (African American) 53 ML/MIN (>60); Globulin 2.5 g/dL (1.3-3.2); Glucose 84 mg/dl (74-100); HDL Cholesterol 34 mg/dl (40-60); Potassium 4.3 mmoL/L (3.5-5.1); Sodium 140 mmol/L (136-145); Total Protein,Serum 6.4 g/dl (6.3-8.2); Triglycerides 196 mg/dl (30-150); VLDL Cholesterol 39 mg/dL (0-40)
[2022-10-20 19:12] LABS: Direct LDL Cholesterol 87.61 mg/dL (100-129)
== END ==
PROVIDERS: PCP Internal Medicine; Visit Provider Internal Medicine
DX: I10 Essential (primary) hypertension (principal); E78.5 Hyperlipidemia, unspecified; M15.0 Primary generalized (osteo)arthritis; M81.0 Age-related osteoporosis without current pathological fracture; N32.81 Overactive bladder
CPT/HCPCS: 80053; 80061

== ENCOUNTER → 2022-11-17 15:00 | Outpatient (CLI) | payer MEDICARE, OTHER, SELFPAY ==
--- NOTE | 2022-11-17 15:04 | MM_ITS ---
PROCEDURE INFORMATION: Exam: MG Bilateral Screening 3D Mammography Exam date and time: 11/17/2022 3:21 PM Age: 71 years old Clinical indication: Screening. No family history of breast cancer. TECHNIQUE: Imaging protocol: Bilateral Screening tomosynthesis and 2D mammography including computer-aided detection (CAD) when performed. COMPARISON: 1. MG MM DIG SCREENING MAMM BI W/CAD 10/24/2021 10:21 AM 2. MG MM DIG SCREENING MAMM BI W/CAD 10/21/2020 10:10 AM 3. MG MM DIG SCREENING MAMM BI W/CAD 10/07/2019 8:12 AM 4. MG DMSB DIG MAMM-SCREEN JACQUELINE W/CAD 09/28/2017 10:41 AM FINDINGS: MAMMOGRAPHY: Breast composition: There are scattered areas of fibroglandular density. Mass: No suspicious mass. Architectural distortion: None. Calcifications: No suspicious calcifications. Asymmetric density: None. Skin thickening: None. Axillary adenopathy: None. IMPRESSION: No mammographic evidence of malignancy. Annual screening is recommended unless otherwise clinically indicated. ASSESSMENT: BI-RADS Category 1: Negative
== END ==
PROVIDERS: PCP Internal Medicine; Visit Provider Internal Medicine
DX: Z12.31 Encounter for screening mammogram for malignant neoplasm of breast (principal)
CPT/HCPCS: 77063; 77067

== ENCOUNTER → 2023-04-20 16:56 | Outpatient (CLI) | payer MEDICARE, OTHER, SELFPAY ==
[2023-04-20 17:29] LABS: Basophils # 0.1 K/mm3 (0-0.2); Basophils % 0.7 % (0.1-2.0); Eosinophils # 0.3 K/mm3 (0.0-0.4); Hematocrit 42.8 % (37.0-47.0); Hemoglobin 13.9 g/dL (12.2-16.2); Lymphocytes # 2.7 K/mm3 (0.7-4.5); Lymphocytes % 39.5 % (10-50); Mean Corpuscular HGB Conc 32.5 g/dL (31.8-35.4); Mean Corpuscular Volume 92.3 fl (81-99); Mean Platelet Volume 8.8 fl (7.4-10.4); Monocytes # 0.4 K/mm3 (0.1-1.0); Monocytes % 6.3 % (1.7-9.3); Neutrophils # 3.3 K/mm3 (1.8-7.8); Neutrophils % 48.5 % (37.0-80.0); Platelet Count 248 K/mm3 (142-424); Red Blood Count 4.63 M/mm3 (4.20-5.40); White Blood Count 6.8 K/mm3 (4.8-10.8)
[2023-04-20 17:53] LABS: Alanine Aminotransferase 21 U/L (12-78); Albumin Level 3.9 g/dl (3.5-5.0); Albumin/Globulin Ratio 1.4 (1.1-1.8); Alkaline Phosphatase 68 U/L (38-126); Anion Gap 15.2 mEq/L (5-15); Aspartate Amino Transferase 24 U/L (14-36); Bilirubin,Total 0.6 mg/dl (0.2-1.3); Blood Urea Nitrogen 17 mg/dl (7-17); Calcium 8.8 mg/dl (8.4-10.2); Carbon Dioxide 26 mmol/L (22.0-30.0); Chloride 105 mmol/L (98-107); Chol/HDL Ratio 3.4 (1-3.5); Cholesterol 141 mg/dl (140-200); Estimated Glomerular Filt Rate 82 ml/min (>60); GFR (African American) 99 ML/MIN (>60); Globulin 2.8 g/dL (1.3-3.2); Glucose 79 mg/dl (74-100); HDL Cholesterol 41 mg/dl (40-60); Potassium 4.2 mmoL/L (3.5-5.1); Sodium 142 mmol/L (136-145); Total Protein,Serum 6.7 g/dl (6.3-8.2); Triglycerides 74 mg/dl (30-150); VLDL Cholesterol 15 mg/dL (0-40)
[2023-04-20 18:04] LABS: Direct LDL Cholesterol 79.27 mg/dL (100-129)
== END ==
PROVIDERS: PCP Internal Medicine; Visit Provider Internal Medicine
DX: I10 Essential (primary) hypertension (principal); K21.9 Gastro-esophageal reflux disease without esophagitis; M15.0 Primary generalized (osteo)arthritis; E78.5 Hyperlipidemia, unspecified
CPT/HCPCS: 80053; 80061; 85025

== ENCOUNTER 2023-06-02 10:06 | Emergency (ER) | payer MEDICARE, OTHER, SELFPAY ==
[2023-06-02 10:15] VITALS: BP 133/56; PULSE 61; RESP 20; TEMP 36.9; O2SAT 95; BMI 38.2
[2023-06-02 10:28] VITALS: BP 133/56; PULSE 61; RESP 20; TEMP 36.9; O2SAT 95
--- NOTE | 2023-06-02 10:28 | EXP.UTC ---
Discharge Plan Disposition Patient Disposition: Home, Self-Care Condition: Good Prescriptions Prescriptions: New ciprofloxacin HCl 0.3 % drops See Rx Instructions .ROUTE .COMPLEX Qty: 2.5 0RF Rx Instructions: put 1 drp in left eye(s) every 2 hr x2days; then q4 x5days No Action tramadol 50 mg tablet 50 mg PO Q6H PRN oxycodone 5 mg tablet 5 mg PO Q4H PRN hydrocodone-acetaminophen 7.5-325 mg tablet 1 tab PO Q6H PRN gabapentin 300 mg capsule 300 mg PO HS dimenhydrinate 50 mg tablet 50 mg PO .prn cholecalciferol (vitamin D3) 25 mcg (1,000 unit) capsule 25 mcg PO DAILY B complex-C 500 mg-folic 400 mcg-zinc 24 mg-copper 3 mg-vit E tablet 500 mg-400 mcg- 24 mg-3 mg tablet PO amlodipine 5 mg tablet 5 mg PO ONCE aspirin [Adult Low Dose Aspirin] 81 mg tablet,delayed release (DR/EC) 81 mg PO ONCE meloxicam 15 mg tablet 15 mg PO ONCE atenolol 50 mg tablet 50 mg PO ONCE oxybutynin chloride 10 mg tablet extended release 24hr 10 mg PO ONCE hydrocodone bitartrate 10 mg capsule, oral only, ER 12hr 10 mg PO Q12H famotidine 20 mg tablet 20 mg PO DAILY Qty: 180 Patient Comments: TAKE 1 TABLET BY MOUTH TWICE DAILY BEFORE MEAL(S) FOR HEARTBURN promethazine 25 mg suppository 25 mg HI Q6H PRN (Reason: sleep) Qty: 12 0RF Referrals Follow up/Referrals: Rk Sanderson MD [Primary Care Provider] - See instructions Activity Restrictions/Add. Instructions Additional Instructions/Restrictions: contact precautions if worsen or no improvement return Clinical Impressions Clinical Impression: Gail eye disease of right eye Instructions Patient Instructions: DI for Conjunctivitis Discharge ED Provider: Maryann ([facility] [facility] [place] HPI General Stated complaint: LT eye redness w/drainage and inflammation Mode of Arrival: Ambulatory Source of Information: Patient Limitations: No Limitations Time Seen by Provider: 06/02/23 10:28 Description of Symptoms (Recalled from Triage Doc. by RN): PATIENT C/O REDNESS AND DRAINAGE TO LEFT EYE SINCE YESTERDAY MORNING HEENT Symptoms (Recalled from RN notes): Yes Resp Symptoms (Recalled from RN notes): No Skin Symptoms (Recalled from RN notes): No MS Symptoms (Recalled from RN notes): No Functional Status (Recalled from RN notes): WNL History of Present Illness Provider Complaint: 72 yr old female presents for redness and drainage to left eye. pt states this am it was matted together Related Data Home Medications Medication Instructions Recorded Confirmed amlodipine 5 mg tablet 5 mg PO ONCE bp 04/10/18 11/22/21 aspirin 81 mg tablet,delayed 81 mg PO ONCE heart. 04/10/18 11/22/21 release (Adult Low Dose Aspirin) atenolol 50 mg tablet 50 mg PO ONCE bp 04/10/18 11/22/21 hydrocodone bitartrate 10 mg 10 mg PO Q12H Pain 04/10/18 11/22/21 capsule, oral only, extended rel 12 hr meloxicam 15 mg tablet 15 mg PO ONCE inflammation 04/10/18 11/22/21 oxybutynin chloride 10 mg 10 mg PO ONCE bladder 04/10/18 11/22/21 tablet,extended release 24 hr famotidine 20 mg tablet 20 mg PO DAILY stomach #180 tabs 10/02/19 11/22/21 B complex-C 500 mg-folic 400 tab PO 11/22/21 mcg-zinc 24 mg-copper 3 mg-vit E tablet (Stress B-Complex) cholecalciferol (vitamin D3) 25 25 mcg PO DAILY 11/22/21 11/22/21 mcg (1,000 unit) capsule dimenhydrinate 50 mg tablet 50 mg PO .prn 11/22/21 11/22/21 gabapentin 300 mg capsule 300 mg PO HS 11/22/21 11/22/21 hydrocodone 7.5 mg-acetaminophen 1 tab PO Q6H PRN 11/22/21 11/22/21 325 mg tablet oxycodone 5 mg tablet 5 mg PO Q4H PRN 11/22/21 11/22/21 tramadol 50 mg tablet 50 mg PO Q6H PRN 11/22/21 11/22/21 Previous Rx's Medication Instructions Recorded promethazine 25 mg rectal 25 mg HI Q6H PRN sleep #12 ea 09/18/22 suppository ciprofloxacin HCl 0.3 % eye drops See Rx Instructions ophthalmic 06/02/23 (eye) .COMPLEX #2.5 mL Allergies Allerg
== END 2023-06-02 10:40 | disposition home or self-care (01) ==
PROVIDERS: Emergency Provider Nurse Practitioner Family; PCP Internal Medicine
DX: H10.32 Unspecified acute conjunctivitis, left eye (principal); I10 Essential (primary) hypertension; K21.9 Gastro-esophageal reflux disease without esophagitis
CPT/HCPCS: 99212; 99214; G0463

== ENCOUNTER → 2023-10-29 16:55 | Outpatient (CLI) | payer MEDICARE, OTHER, SELFPAY ==
[2023-10-29 18:19] LABS: Alanine Aminotransferase 22 U/L (12-78); Albumin Level 4.1 g/dl (3.5-5.0); Albumin/Globulin Ratio 1.5 (1.1-1.8); Alkaline Phosphatase 78 U/L (38-126); Anion Gap 9.8 mEq/L (5-15); Aspartate Amino Transferase 26 U/L (14-36); Bilirubin,Total 0.4 mg/dl (0.2-1.3); Blood Urea Nitrogen 21 mg/dl (7-17); Calcium 8.6 mg/dl (8.4-10.2); Carbon Dioxide 28 mmol/L (22.0-30.0); Chloride 107 mmol/L (98-107); Chol/HDL Ratio 3.4 (1-3.5); Cholesterol 163 mg/dl (140-200); Estimated Glomerular Filt Rate 70 ml/min (>60); GFR (African American) 85 ML/MIN (>60); Globulin 2.7 g/dL (1.3-3.2); Glucose 79 mg/dl (74-100); HDL Cholesterol 48 mg/dl (40-60); Potassium 3.8 mmoL/L (3.5-5.1); Sodium 141 mmol/L (136-145); Total Protein,Serum 6.8 g/dl (6.3-8.2); Triglycerides 139 mg/dl (30-150); VLDL Cholesterol 28 mg/dL (0-40)
[2023-10-29 18:30] LABS: Direct LDL Cholesterol 93.82 mg/dL (100-129)
== END ==
PROVIDERS: PCP Internal Medicine; Visit Provider Internal Medicine
DX: I10 Essential (primary) hypertension (principal); I83.893 Varicose veins of bilateral lower extremities with other complications; K21.9 Gastro-esophageal reflux disease without esophagitis; M15.0 Primary generalized (osteo)arthritis; E78.5 Hyperlipidemia, unspecified
CPT/HCPCS: 80053; 80061

== ENCOUNTER 2023-12-06 09:51 | Outpatient (CLI) | payer MEDICARE, OTHER, SELFPAY ==
--- NOTE | 2023-12-06 10:00 | MM_ITS ---
PROCEDURE INFORMATION: Exam: MG Bilateral Screening 3D Mammography Exam date and time: 12/06/2023 9:53 AM Age: 72 years old Clinical indication: Screening mammogram TECHNIQUE: Imaging protocol: Bilateral Screening tomosynthesis and 2D mammography including computer-aided detection (CAD) when performed. COMPARISON: 1. MG MM DIG SCREENING MAMM BI W/CAD 11/17/2022 3:21 PM 2. MG MM DIG SCREENING MAMM BI W/CAD 10/24/2021 10:21 AM 3. MG MM DIG SCREENING MAMM BI W/CAD 10/21/2020 10:10 AM 4. MG MM DIG SCREENING MAMM BI W/CAD 10/07/2019 8:12 AM FINDINGS: MAMMOGRAPHY: Breast composition: There are scattered areas of fibroglandular density. Mass: None. Architectural distortion: No new or suspicious architectural distortion. Calcifications: No new or suspicious calcifications are present Asymmetric density: No new or suspicious asymmetric density is present Skin thickening: None. Axillary adenopathy: None. IMPRESSION: No mammographic evidence of malignancy. Recommend annual screening mammography unless otherwise clinically indicated. ASSESSMENT: BI-RADS category 1: Negative
== END 2023-12-06 23:59 ==
LOC: RAD 09:52
PROVIDERS: PCP Internal Medicine; Visit Provider Internal Medicine
DX: Z12.31 Encounter for screening mammogram for malignant neoplasm of breast (principal)
CPT/HCPCS: 77063; 77067

== ENCOUNTER 2024-01-20 15:22 | Emergency (ER) | payer MEDICARE, OTHER, SELFPAY ==
[2024-01-20 16:00] VITALS: BP 144/74; PULSE 52; RESP 18; TEMP 36.7; O2SAT 94; BMI 39.4
--- NOTE | 2024-01-20 16:38 | ED_ITS ---
Discharge Plan Disposition Patient Disposition: Home, Self-Care Condition: Good Prescriptions Prescriptions: New phenazopyridine [Pyridium] 200 mg tablet 200 mg PO Q8H 2 Days Qty: 6 0RF ciprofloxacin HCl [Cipro] 500 mg tablet 500 mg PO BID 7 Days Qty: 14 0RF No Action tramadol 50 mg tablet 50 mg PO Q6H PRN oxycodone 5 mg tablet 5 mg PO Q4H PRN hydrocodone-acetaminophen 7.5-325 mg tablet 1 tab PO Q6H PRN gabapentin 300 mg capsule 300 mg PO HS dimenhydrinate 50 mg tablet 50 mg PO .prn cholecalciferol (vitamin D3) 25 mcg (1,000 unit) capsule 25 mcg PO DAILY Stress B-Complex 500 mg-400 mcg- 24 mg-3 mg tablet PO amlodipine 5 mg tablet 5 mg PO ONCE aspirin [Adult Low Dose Aspirin] 81 mg tablet,delayed release (DR/EC) 81 mg PO ONCE meloxicam 15 mg tablet 15 mg PO ONCE atenolol 50 mg tablet 50 mg PO ONCE oxybutynin chloride 10 mg tablet extended release 24hr 10 mg PO ONCE hydrocodone bitartrate 10 mg capsule, oral only, ER 12hr 10 mg PO Q12H famotidine 20 mg tablet 20 mg PO DAILY Qty: 180 Patient Comments: TAKE 1 TABLET BY MOUTH TWICE DAILY BEFORE MEAL(S) FOR HEARTBURN ciprofloxacin HCl 0.3 % drops See Rx Instructions .ROUTE .COMPLEX Qty: 2.5 0RF Rx Instructions: put 1 drp in left eye(s) every 2 hr x2days; then q4 x5days promethazine 25 mg suppository 25 mg AL Q6H PRN (Reason: sleep) Qty: 12 0RF Referrals Follow up/Referrals: Rk Sanderson MD [Primary Care Provider] - See instructions Activity Restrictions/Add. Instructions Additional Instructions/Restrictions: Drink plenty of fluids. Take tylenol or ibuprofen for pain or fever. Take the medications as directed. Follow up with your regular doctor. GO TO THE ER FOR ANY WORSENING SYMPTOMS The pyridium will make your urine turn orange, this is an expected side effect. It will stain your clothes if it comes into contact with them. We will culture the urine. That will tell what bacteria is causing your infection and which antibiotics will treat it best. Sometimes the first antibiotic we prescribe turns out to not work against different bacteria. So, make sure you follow up within 3 days if you are not getting better. Clinical Impressions Clinical Impression: Acute UTI Instructions Patient Instructions: DI for Urinary Tract Infection (UTI), Urine Culture, Phenazopyridine Discharge ED Provider: Rito Chamberlain [facility] [place] General Stated complaint: Poss UTI Time Seen by Provider: 01/20/24 16:38 History of Present Illness Provider Complaint: She states that for the past 3 days she has had low back pain, dysuria, and urinary frequency. Related Data Home Medications Medication Instructions Recorded Confirmed amlodipine 5 mg tablet 5 mg PO ONCE bp 04/10/18 11/22/21 aspirin 81 mg tablet,delayed 81 mg PO ONCE heart. 04/10/18 11/22/21 release (Adult Low Dose Aspirin) atenolol 50 mg tablet 50 mg PO ONCE bp 04/10/18 11/22/21 hydrocodone bitartrate 10 mg 10 mg PO Q12H Pain 04/10/18 11/22/21 capsule, oral only, extended rel 12 hr meloxicam 15 mg tablet 15 mg PO ONCE inflammation 04/10/18 11/22/21 oxybutynin chloride 10 mg 10 mg PO ONCE bladder 04/10/18 11/22/21 tablet,extended release 24 hr famotidine 20 mg tablet 20 mg PO DAILY stomach #180 tabs 10/02/19 11/22/21 B complex-C 500 mg-folic 400 tab PO 11/22/21 mcg-zinc 24 mg-copper 3 mg-vit E tablet (Stress B-Complex) cholecalciferol (vitamin D3) 25 25 mcg PO DAILY 11/22/21 11/22/21 mcg (1,000 unit) capsule dimenhydrinate 50 mg tablet 50 mg PO .prn 11/22/21 11/22/21 gabapentin 300 mg capsule 300 mg PO HS 11/22/21 11/22/21 hydrocodone 7.5 mg-acetaminophen 1 tab PO Q6H PRN 11/22/21 11/22/21 325 mg tablet oxycodone 5 mg tablet 5 mg PO Q4H PRN 11/22/21 11/22/21 tramadol 50 mg tablet 50 mg PO Q6H PRN 11/22/21 11/22/21 Previous Rx's Medication Instructions Recorded promethazine 25 mg rectal 25 mg AL Q6H PRN sleep #12 ea 09/18/22 suppository ciprofloxacin HCl 0.3 % eye drops See Rx Instructions ophthalmic 06/02/23 (eye) .COMPLEX #2.5 mL ciprofloxacin HCl 500 mg tablet 500 mg PO BID 7 days #14 tabs 01/20/24 (Cipro) phenazopyridine 200 mg tablet 200 mg PO Q8H 2 days #6 tabs 01/20/24 (Pyridium) Allergies Allergy/AdvReac Type Severity Reaction Status Date / Time enoxaparin [From LOVENOX] Allergy Unknown I-HIVES Verified 11/22/21 13:49 Penicillins [PENICILLINS] Allergy Unknown I-RASH Verified 11/22/21 13:49 rofecoxib [From VIOXX] Allergy Unknown SWELLING Verified 11/22/21 13:49 PFSH PFSH Disclaimer: The information contained in this section may have been updated after the patient was seen, as this information can be updated by other users. 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) Smoking Status: Never smoker second hand exposure: No alcohol intake: never counseling provided: none substance use type: denies use current occupational status: retired Travel in the last 8 weeks: None household members: spouse housing: house current occupational exposures/hazards: No caffeine: Yes ROS Obtained: Yes All systems reviewed & no additional complaints except as documented Constitutional Constitutional: Reports system reviewed and no additional complaints, except as documented, Denies chills and Denies fever(s) Eyes Eyes: Denies eye discharge ENT Ears, Nose, Mouth, and Throat: Denies dysphagia, Denies sore throat and Denies throat swelling Cardiovascular Cardiovascular: Denies chest pain and Denies dyspnea Respiratory Respiratory: Denies chest congestion, Denies cough and Denies dyspnea Gastrointestinal Gastrointestingal: Denies abdominal pain, constipation, diarrhea, dysphagia, nausea or vomiting Genitourinary Female Genitourinary: Reports as per HPI, Reports dysuria, Reports sexual dysfunction, Reports urinary frequency, Denies urinary incontinence and Reports urinary hesitancy Musculoskeletal Musculoskeletal: Denies arthralgias and Reports back pain Integumentary/Breasts Skin/Breast: Denies rash Neurologic Neurologic: Denies paresthesias Allergic/Immunologic Allergic/Immunologic: Denies throat swelling Physical Exam General General appearance: alert and in no apparent distress Head Head exam: atraumatic and normocephalic Eye Eye exam: Present normal appearance, PERRL and EOMI ENT ENT exam: Present normal exam, mucous membranes moist, TM's normal bilaterally and normal external ear exam Neck Neck exam: Present normal inspection, full ROM and trachea midline; Absent tenderness, meningismus or lymphadenopathy Chest Chest inspection: Present normal inspection and symmetric chest wall rise; Absent tenderness Respiratory Respiratory exam: Present normal lung sounds bilaterally; Absent respiratory distress, wheezes or stridor Cardiovascular Cardiovascular exam: Present regular rate, normal rhythm and normal heart sounds Abdominal Exam Abdominal exam: Present soft and normal bowel sounds; Absent distention, tenderness, guarding, rebound, rigidity, incision, psoas sign, obturator sign, heel tap sign, Ch's sign, Rovsing's sign or tenderness at McBurney's Point Extremities Exam Extremities exam: Present normal inspection, full ROM and normal capillary refill; Absent tenderness, edema, joint swelling, calf tenderness or cyanosis Back Exam Back exam: Present normal inspection and full ROM; Absent tenderness, CVA tenderness (R) or CVA tenderness (L) Neurological Exam Neurological exam: Present alert, oriented X3 and normal gait Psychiatric Psychiatric exam: Present normal affect and normal mood Skin Skin exam: Present warm, dry, intact and normal color Lymphatic Lymphatic Findings: no adenopathy Medical Decision Making Medical Records Medical records reviewed: No I reviewed the patient's medical records. [place] Inquiry Pt receiving controlled substance: No Lab Data Lab results reviewed: Yes I reviewed the patient's lab results.
[2024-01-20 16:39] LABS: Apearance,Urine Clear (Clear); Color,Urine Yellow (Yellow); PH,Urine 5.5 (5.0-8.5)
[2024-01-20 16:40] LABS: Bilirubin,Urine 1+ (Negative); Blood, Urine 3+ (Negative); Glucose,Urine (UA) Negative (Negative); Ketones,Urine Negative (Negative); Protein,Urine 1+ (Negative); UTC Leukocyte Esterase,Urine Trace (Negative); UTC Nitrate,Urine Positive (Negative); Urobilinogen,Urine 0.2 EU/dl (0.2)
[2024-01-20 16:52] VITALS: BP 144/74; PULSE 52; RESP 18; TEMP 36.7; O2SAT 94
== END 2024-01-20 16:52 | disposition home or self-care (01) ==
PROVIDERS: Emergency Provider Nurse Practitioner Family; PCP Internal Medicine
DX: N39.0 Urinary tract infection, site not specified (principal); M54.50 Low back pain, unspecified; R35.0 Frequency of micturition; I10 Essential (primary) hypertension
CPT/HCPCS: 81003; 87086; 99212; 99214; G0463

== ENCOUNTER 2024-04-19 12:01 | Emergency (ER) | payer MEDICARE, OTHER, SELFPAY ==
[2024-04-19 12:10] VITALS: BP 158/79; PULSE 57; RESP 20; TEMP 36.7; O2SAT 96; BMI 40.3
--- NOTE | 2024-04-19 12:25 | EXP.UTC ---
Discharge Plan Disposition Patient Disposition: Home, Self-Care Condition: Good Prescriptions Prescriptions: New cephalexin 500 mg tablet 500 mg PO BID 7 Days Qty: 14 0RF No Action hydrocodone-acetaminophen 7.5-325 mg tablet 1 tab PO Q6HP PRN (Reason: Pain) Patient Comments: TAKE 1 TABLET BY MOUTH EVERY 6 HOURS NEEDED FOR PAIN omeprazole 20 mg capsule,delayed release(DR/EC) 20 mg PO DAILY Patient Comments: TAKE 1 CAPSULE BY MOUTH ONCE DAILY IN THE MORNING FOR GERD Referrals Follow up/Referrals: Rk Sanderson MD [Primary Care Provider] - See instructions Activity Restrictions/Add. Instructions Additional Instructions/Restrictions: Increase fluids, water and not soda or tea. Can drink cranberry juice or cranberry extract. Wipe front to back Wear cotton underwear Empty bladder after intercourse Start antibiotics immediately and make sure you take the full course although you may start to see improvement over the next 48 hours. You can eat yogurt or take probiotics to decrease diarrhea or yeast infection caused by the antibiotic Be sure to follow-up anytime for new or worsening symptoms in 48 hours for wound urine culture results be sure to let you PCP no recent urine for culture so they can request records and ensure that you have appropriate antibiotic if you are not getting better or getting worse. If symptoms worsen or do not improve return or be seen in the ER. Follow-up with primary care this week. Clinical Impressions Clinical Impression: Acute UTI Instructions Patient Instructions: DI for Urinary Tract Infection (UTI) Discharge ED Provider: Maryann ([facility] HPI General Stated complaint: uti pain Mode of Arrival: Ambulatory Source of Information: Patient Limitations: No Limitations Time Seen by Provider: 04/19/24 12:26 Description of Symptoms (Recalled from Triage Doc. by RN): PATIENT C/O PAIN AND BURNING WITH URINATION SINCE YESTERDAY HEENT Symptoms (Recalled from RN notes): No Resp Symptoms (Recalled from RN notes): No Skin Symptoms (Recalled from RN notes): No MS Symptoms (Recalled from RN notes): No Functional Status (Recalled from RN notes): WNL History of Present Illness Provider Complaint: 73 yr old female presents for burning,freq and pain with voiding Related Data Home Medications Medication Instructions Recorded Confirmed hydrocodone 7.5 mg-acetaminophen 1 tab PO Q6HP PRN Pain 04/19/24 04/19/24 325 mg tablet omeprazole 20 mg capsule,delayed 20 mg PO DAILY 04/19/24 04/19/24 release Previous Rx's Medication Instructions Recorded cephalexin 500 mg tablet 500 mg PO BID 7 days #14 tabs 04/19/24 Allergies Allergy/AdvReac Type Severity Reaction Status Date / Time enoxaparin [From LOVENOX] Allergy Unknown I-HIVES Verified 01/20/24 16:52 Penicillins [PENICILLINS] Allergy Unknown I-RASH Verified 01/20/24 16:52 rofecoxib [From VIOXX] Allergy Unknown SWELLING Verified 01/20/24 16:52 Worker's Comp Is this a Worker's Comp case?: No [facility] Disclaimer: The information contained in this section may have been updated after the patient was seen, as this information can be updated by other users. 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) Smoking Status: Never smoker second hand exposure: No alcohol intake: never counseling provided: none substance use type: denies use current occupational status: retired Travel in the last 8 weeks: None household members: spouse housing: house current occupational exposures/hazards: No caffeine: Yes ROS Obtained: Yes All systems reviewed & no additional complaints except as documented Constitutional Constitutional: Reports system reviewed and no additional complaints, except as documented Eyes Eyes: Reports system reviewed and no additional complaints, except as documented ENT Ears, Nose, Mouth, and Throat: Reports system reviewed and no additional complaints, except as documented Cardiovascular Cardiovascular: Reports system reviewed and no additional complaints, except as documented Respiratory Respiratory: Reports system reviewed and no additional complaints, except as documented Gastrointestinal Gastrointestingal: Reports system reviewed and no additional complaints, except as documented Genitourinary Female Genitourinary: Reports system reviewed and no additional complaints, except as documented, Reports as per HPI, Reports dysuria, Reports urinary hesitancy and Reports urinary urgency Musculoskeletal Musculoskeletal: Reports system reviewed and no additional complaints, except as documented Integumentary/Breasts Skin/Breast: Reports system reviewed and no additional complaints, except as documented Neurologic Neurologic: Reports system reviewed and no additional complaints, except as documented Endocrine Endocrine: Reports system reviewed and no additional complaints, except as documented Physical Exam General General appearance: alert and in no apparent distress Head Head exam: atraumatic ENT ENT exam: Present normal exam, normal oropharynx and mucous membranes moist Respiratory Respiratory exam: Present normal lung sounds bilaterally Cardiovascular Cardiovascular exam: Present regular rate and normal rhythm Neurological Exam Neurological exam: Present alert and oriented X3 Skin Skin exam: Present warm and intact Medical Decision Making Medical Records Medical records reviewed: Yes I reviewed the patient's medical records. Lenn[place] Inquiry Pt receiving controlled substance: No Lenn[place] was queried for this patient: No Comment: pt states she has taken keflex in past Vital Signs: 04/19/24 12:10 Temperature 98.0 F Temperature Source Oral Pulse Rate [Left Brachial] 57 L Respiratory Rate 20 Blood Pressure [Left Arm] 158/79 H Blood Pressure Mean [Left Arm] 105 Blood Pressure Source [Left Arm] Automatic Cuff Blood Pressure Position [Left Arm] Sitting 02 Sat by Pulse Oximetry 96 Oxygen Delivery Method Room Air Lab Data Lab results reviewed: Yes I reviewed the patient's lab results. Orders (Tests/Meds): ORDERS Category Date Time Status Urine Culture Stat Micro 04/19/24 12:25 Ordered
[2024-04-19 12:30] LABS: Apearance,Urine Cloudy (Clear); Bilirubin,Urine Negative (Negative); Blood, Urine 1+ (Negative); Color,Urine Yellow (Yellow); Glucose,Urine (UA) Negative (Negative); Ketones,Urine Negative (Negative); PH,Urine 5.5 (5.0-8.5); Protein,Urine Trace (Negative); Specific Gravity, Urine 1.025 (1.005-1.030); UTC Leukocyte Esterase,Urine 1+ (Negative); UTC Nitrate,Urine Negative (Negative); Urobilinogen,Urine 0.2 EU/dl (0.2)
[2024-04-19 12:41] VITALS: BP 158/79; PULSE 57; RESP 20; TEMP 36.7; O2SAT 96
== END 2024-04-19 12:46 | disposition home or self-care (01) ==
PROVIDERS: Emergency Provider Nurse Practitioner Family; PCP Internal Medicine
DX: N39.0 Urinary tract infection, site not specified (principal); B96.29 Other Escherichia coli [E. coli] as the cause of diseases classified elsewhere; R30.0 Dysuria; R35.0 Frequency of micturition
CPT/HCPCS: 81003; 87086; 87088; 87186; 99212; 99214; G0463

== ENCOUNTER 2024-05-06 09:48 | Outpatient (POV) | payer MEDICARE, OTHER, SELFPAY | END 2024-05-06 23:59 | disposition home or self-care (01) | LOC: SC 09:49 | PROVIDERS: Visit Provider Specialist/Technologist | DX: Z00.00 Encounter for general adult medical examination without abnormal findings (principal) ==

== ENCOUNTER 2024-06-03 13:09 | Outpatient (CLI) | payer MEDICARE, OTHER, SELFPAY ==
[2024-06-03 17:00] LABS: Basophils # 0.1 K/mm3 (0-0.2); Basophils % 1.4 % (0.1-2.0); Eosinophils # 0.4 K/mm3 (0.0-0.4); Eosinophils % 5.9 % (0.1-12.0); Hematocrit 41.4 % (37.0-47.0); Hemoglobin 15.3 g/dL (12.2-16.2); Lymphocytes # 2.2 K/mm3 (0.7-4.5); Lymphocytes % 35.9 % (10-50); Mean Corpuscular HGB Conc 37.1 g/dL (31.8-35.4); Mean Corpuscular Hemoglobin 35.7 pg (27.0-31.2); Mean Corpuscular Volume 96.2 fl (81-99); Mean Platelet Volume 9.1 fl (7.4-10.4); Monocytes # 0.4 K/mm3 (0.1-1.0); Monocytes % 6.4 % (1.7-9.3); Neutrophils % 50.5 % (37.0-80.0); Platelet Count 215 K/mm3 (142-424); Red Cell Distribution Width 14.3 % (11.5-17.5)
[2024-06-03 18:45] LABS: Alanine Aminotransferase 31 U/L (12-78); Albumin Level 3.9 g/dl (3.5-5.0); Albumin/Globulin Ratio 1.4 (1.1-1.8); Alkaline Phosphatase 76 U/L (38-126); Anion Gap 9.6 mEq/L (5-15); Aspartate Amino Transferase 31 U/L (14-36); Bilirubin,Total 0.7 mg/dl (0.2-1.3); Blood Urea Nitrogen 18 mg/dl (7-17); Calcium 9.3 mg/dl (8.4-10.2); Carbon Dioxide 30 mmol/L (22.0-30.0); Chloride 107 mmol/L (98-107); Chol/HDL Ratio 4.1 (1-3.5); Cholesterol 176 mg/dl (140-200); Estimated Glomerular Filt Rate 70 ml/min (>60); GFR (African American) 85 ML/MIN (>60); Globulin 2.8 g/dL (1.3-3.2); Glucose 69 mg/dl (74-100); HDL Cholesterol 43 mg/dl (40-60); Potassium 4.6 mmoL/L (3.5-5.1); Sodium 142 mmol/L (136-145); Total Protein,Serum 6.7 g/dl (6.3-8.2); Triglycerides 114 mg/dl (30-150); VLDL Cholesterol 23 mg/dL (0-40)
[2024-06-03 19:02] LABS: Direct LDL Cholesterol 94.39 mg/dL (100-129)
== END 2024-06-03 23:59 | disposition home or self-care (01) ==
LOC: LAB.DROPOF 06-04 13:09
PROVIDERS: PCP Internal Medicine; Visit Provider Internal Medicine
DX: E78.5 Hyperlipidemia, unspecified (principal); I10 Essential (primary) hypertension
CPT/HCPCS: 80053; 80061; 85025

== ENCOUNTER 2024-06-26 14:41 | Outpatient (CLI) | payer MEDICARE, OTHER, SELFPAY | END 2024-06-26 23:59 | disposition home or self-care (01) | LOC: RT 14:44 | PROVIDERS: PCP Internal Medicine; Visit Provider Internal Medicine | DX: R00.2 Palpitations (principal); I10 Essential (primary) hypertension | CPT/HCPCS: 93225; 93227 ==

== ENCOUNTER 2024-07-15 09:37 | Outpatient (CLI) | payer MEDICARE, OTHER, SELFPAY | END 2024-07-15 23:59 | disposition home or self-care (01) | LOC: RT 09:38 | PROVIDERS: PCP Internal Medicine; Visit Provider Nurse Practitioner | DX: R00.2 Palpitations (principal); R94.31 Abnormal electrocardiogram [ECG] [EKG] | CPT/HCPCS: 93270 ==

== ENCOUNTER 2024-07-31 09:50 | Outpatient (CLI) | payer MEDICARE, OTHER, SELFPAY ==
--- NOTE | 2024-07-31 | CA_ITS ---
APPROVED REPORT Exam: Pharmacologic Technologist: Ne Espinal, Ht: 5 ft 4 in Wt: 235 lbs BSA: 2.10 m2 HR: 60 bpm BP: 165/75 mmHg Rhythm: NSR 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 Medications: Amlodipine,,,,, Omeprazole,,,,, Atenolol,,,,, MeLOXICAM,,,,, Hydrocodone-Acetaminophen,,,,, OxYbutnin chloride er,,,,, Clenpiq,,,,, Stress Test Details Test: LEXISCAN Reason for pharmacologic stress test: physical limitation. HR Resting HR: 53 bpm Max Heart Rate (APMHR): 146 bpm Max HR Achieved: 126 bpm Target HR (85% APMHR): 124 bpm % of APMHR: 86 Recovery HR: 71 bpm BP Resting BP: 165.0/75.0 mmHg Max BP: 165.0/75.0 mmHg Recovery BP: 145.0/64.0 mmHg ECG Resting ECG: SR Stress ECG: No significant ST changes Arrhythmia: PAC, Short burst of SVT during recovery Clinical Exercise duration: 04:01 min Highest Stage Achieved: Stress ECG Conclusion Symptoms: fluttering in chest & SOA with Lexiscan. Arrhythmias/Ectopy: PVCs noted. Short bursts of SVT in recovery. PACs noted in recovery. ST-T Changes: unremarkable with Lexiscan. Myoview images reported separately. Test Summary REST . . . . . . . Resting REST 04:16 . . 53 . 165/ 75 . . Stage 1 01:00 . . 80 . . . . Stage 2 01:00 . . 85 . . . . Stage 3 01:00 . . 81 . 139/ 71 . . Stage 4 01:00 . . 118 . 149/ 67 . . Stage 4 01:01 . . 126 . 149/ 67 . Stop exercise at 04:01 RECOVERY 01:00 . . 75 . . . . RECOVERY 02:00 . . 70 . 134/ 70 . . RECOVERY 02:17 . . 99 . 145/ 64 . . Electronically signed by : Ella Enrique MD 08/03/2024 01:49:28
--- NOTE | 2024-07-31 10:15 | CA_ITS ---
APPROVED REPORT EXAM: Comprehensive 2D, Doppler, and color-flow Echocardiogram Log Preparer: MARIO Bolaños, RVS Ht: 5 ft 4 in Wt: 235lbs BSA: 2.10 BP: 152/71 mmHg Rhythm: Bradycardia Indications: Pre-op colomoscopy, Palpitations, HTN, Dyspnea, GERD Echo Enhancing Agent Comments: Loss of power 2x during exam 2D Dimensions IVSd 0.96 cm F: 0.6-1.0 LVEF (Visual) 56.00 % PWd 0.96 cm F: 0.6 - 1.0 LVEF (Ferguson's) 49.00 % F: 54 - 74 LVDd 4.70 cm F: 3.9 - 5.3 LV Volume 96.40 mL F: 46 - 106 LVDs 3.35 cm F: 2.2 - 3.5 LV Volume Index 45.9 mL/m2 F: 29 - 61 Aortic Root 2.60 cm F: 2.7 - 3.3 LA Volume Index 33.70 mL/m2 (M/F) 16-34 Left Atrium 3.60 cm F: 2.7 - 3.8 LVOT 1.90 cm (M/F) 1.5-2.5 M-Mode Dimensions RVDd 1.90 cm (0.9-2.6) LVDd 4.70 cm (3.5-5.7) LVDs 3.50 cm (3.5-5.7) IVSd 0.96 cm (0.6-1.1) PWd 0.96 cm (0.6-1.1) FS 29.00% TAPSE 2.34 (<1.7) LV Diastology LAT E' 10.9 (>= 10 cm/sec) Aortic Valve AoV Peak Harvey. 120.0 (50-130 cm/s) Tricuspid Valve TR P. Velocity 260.00 cm/s RVSP 38.00 mmHg Left Ventricle The left ventricle is normal size. The left ventricular systolic function is low normal. There is increased LV wall thickness. There is normal LV segmental wall motion. The left ventricular diastolic function is normal. LVEF is 50%. Right Ventricle The right ventricle is normal size. The right ventricular systolic function is normal. Atria Left atrium is mildly dilated. Right atrium is mildly dilated. There is no Doppler evidence of interatrial shunt. Aortic Valve The aortic valve is mildly thickened. There is no aortic valvular stenosis. Trace aortic regurgitation. Mitral Valve The mitral valve leaflets are mildly thickened. No evidence of mitral valve stenosis. Mild mitral regurgitation. Tricuspid Valve The tricuspid valve leaflets are thin and pliable. Mild tricuspid regurgitation. RVSP is 30???35 mmHg. Pulmonic Valve The pulmonary valve is normal in structure. Mild pulmonic regurgitation. Great Vessels The aortic root is normal in size. The ascending aorta is normal in size. IVC is normal in size and collapses >50% with inspiration. Pericardium There is no pericardial effusion. Other Information Study Quality: Fair Conclusion Low normal LV systolic function. Mild biatrial dilation. Mild MR, mild TR, mild PI. RVSP 30-35 mmHg. Electronically signed by : Ella Enrique MD 08/03/2024 01:37:18
--- NOTE | 2024-07-31 11:11 | NM_ITS ---
APPROVED REPORT Exam: Nuclear Stress Test Indication: Chest pain, SOB, Palpitations, Abnormal EKG, Afib Patient Location: Outpatient Stress Tech: Ne Sal GA Tech:Ailyn Dodd ROYALArgelia RT(R)(N) Ht: 5 ft 4 in Wt: 230 lbs Bra Size: D HR: 53 bpm BP: 165/75 mmHg BSA: 2.08 m2 TID: 1.04 BMI: 39.4 History: Chest pain, SOB, Palpitations, Abnormal EKG, Afib Procedure: Patient received 0.4 mg of intravenous Lexiscan, resting heart rate 53 bpm, resting blood pressure 165/75 mmHg, with Lexiscan maximum heart rate achieved was 126 bpm which is % of the maximum predicted heart rate and blood pressure was 165/75 mmHg. With Lexiscan, patient denied any complaint of chest pain. Cardiac Stress and Resting SPECT Images: Cardiac Stress and Resting SPECT images were obtained using technetium 99m Myoview 32.2 mCi stress and 10.30 mCi at rest. Resting and stress imaging in supine and prone positions demonstrate no evidence of fixed or reversible perfusion defects. Gated imaging demonstrates normal global and regional LV systolic function. LVEF is calculated at 54%. Conclusion: No evidence of fixed or reversible perfusion defects. Gated imaging demonstrates normal global and regional LV systolic function. LVEF is calculated at 54%. Electronically signed by : Ella Enrique MD 08/03/2024 01:50:38
[2024-07-31] MEDS: REGADENOSON 0.4MG/5ML SYRINGE 0.4 MG IV (13:50)
[2024-07-31] MEDS: ISOTOPE MYOVIEW (PER STUDY) 1 DOSE IV (13:50)
[2024-07-31] MEDS: SODIUM CHLORIDE 0.9% 10ML SYR (RAD ONLY) 10 ML IV ×2 (13:50)
== END 2024-07-31 23:59 | disposition home or self-care (01) ==
LOC: RT 09:52
PROVIDERS: PCP Internal Medicine; Visit Provider Nurse Practitioner
DX: R06.00 Dyspnea, unspecified (principal); R94.31 Abnormal electrocardiogram [ECG] [EKG]; R00.2 Palpitations; I51.7 Cardiomegaly
CPT/HCPCS: 78452; 93017; 93018; 93306; A9502; J2785

== ENCOUNTER 2024-12-10 10:50 | Outpatient (CLI) | payer MEDICARE, OTHER, SELFPAY ==
[2024-12-10 14:11] LABS: Alanine Aminotransferase 31 U/L (12-78); Albumin Level 4.1 g/dl (3.5-5.0); Albumin/Globulin Ratio 1.8 (1.1-1.8); Alkaline Phosphatase 66 U/L (38-126); Anion Gap 11.8 mEq/L (5-15); Aspartate Amino Transferase 32 U/L (14-36); Bilirubin,Total 0.5 mg/dl (0.2-1.3); Blood Urea Nitrogen 21 mg/dl (7-17); Calcium 9.4 mg/dl (8.4-10.2); Carbon Dioxide 29 mmol/L (22.0-30.0); Chloride 104 mmol/L (98-107); Chol/HDL Ratio 4.1 (1-3.5); Cholesterol 161 mg/dl (140-200); Estimated Glomerular Filt Rate 70 ml/min (>60); GFR (African American) 85 ML/MIN (>60); Globulin 2.3 g/dL (1.3-3.2); Glucose 83 mg/dl (74-100); HDL Cholesterol 39 mg/dl (40-60); Potassium 4.8 mmoL/L (3.5-5.1); Sodium 140 mmol/L (136-145); Total Protein,Serum 6.4 g/dl (6.3-8.2); Triglycerides 77 mg/dl (30-150); VLDL Cholesterol 15 mg/dL (0-40)
[2024-12-10 14:22] LABS: Direct LDL Cholesterol 94.09 mg/dL (100-129)
== END 2024-12-10 23:59 | disposition home or self-care (01) ==
LOC: LAB.DROPOF 12-12 10:51
PROVIDERS: PCP Internal Medicine; Visit Provider Internal Medicine
DX: I10 Essential (primary) hypertension (principal); E78.49 Other hyperlipidemia; E66.01 Morbid (severe) obesity due to excess calories; Z68.41 Body mass index [BMI] 40.0-44.9, adult
CPT/HCPCS: 80053; 80061

== ENCOUNTER 2024-12-10 14:43 | Outpatient (CLI) | payer MEDICARE, OTHER, SELFPAY ==
--- NOTE | 2024-12-10 14:45 | US_ITS ---
PROCEDURE: US TRANSVAGINAL CLINICAL INDICATION: Thickened Endometrium COMPARISON: No exams were available for comparison FINDINGS: Transvaginal and transabdominal sonographic images of the pelvis were obtained. UTERUS: 9.4cm x 4.1cmx 3.6 cm anteverted with a combined endometrial thickness of 10.1 mm. There appears to be a polyp or fibroid anteriorly within the endometrial cavity measuring 1.0 cm x 1.2 cm. Suggest hysteroscopy, D&C and polypectomy. There is a small amount of fluid within the endometrium. The endometrium itself appears thickened. There is a nabothian cyst measuring 1.5 cm x 1.1 cm within the cervix. LEFT OVARY: 1.9 cmx1.6 cmx1.3cm with a volume of 2ml. Seen transabdominally RIGHT OVARY: 2.8 cmx 2.2cmx1.0cm with a volume of 3.1ml. Seen transabdominally Both ovaries are seen and appear normal. Doppler flow to both ovaries are seen. There is no fluid in the cul-de-sac. IMPRESSION: 1. Anteverted, bulky uterus. The endometrium is thickened measuring 10.1 mm. The endometrium is thickened for postmenopausal woman. On the anterior aspect of the endometrium is a polyp or possibly a submucous fibroid measuring 1.0 cm x 1.2 cm. Suggest endometrial sampling and removal of this polyp. 2. There is a small amount of fluid within the endometrium. 3. Both ovaries are seen and appear atrophic. They are both seen transabdominally. 4. No fluid in the cul-de-sac Dictated by: Alfred Crow MD 12/11/2024 13:28 Alfred Crow MD in OV 12/11/2024 13:28
== END 2024-12-10 23:59 | disposition home or self-care (01) ==
LOC: RAD 14:45
PROVIDERS: PCP Internal Medicine; Visit Provider Nurse Practitioner Obstetrics & Gynecology
DX: R93.89 Abnormal findings on diagnostic imaging of other specified body structures (principal)
CPT/HCPCS: 76830

== ENCOUNTER 2024-12-23 06:55 | Day surgery (SDC) | payer MEDICARE, OTHER, SELFPAY ==
[2024-12-22 12:47] VITALS: BMI 39.8
[2024-12-23 07:21] VITALS: BP 152/86; PULSE 59; RESP 18; TEMP 36.2; O2SAT 95
--- NOTE | 2024-12-23 07:21 | P.PNANES_ITS ---
[facility] Disclaimer: The information contained in this section may have been updated after the patient was seen, as this information can be updated by other users. 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 Dyspnea Abnormal ECG Urinary tract infection History of gastroesophageal reflux (GERD) Hypertension Surgical History Total knee replacement status History of tubal ligation History of appendectomy Family History Other Colon cancer Family history of myocardial infarction Social History Smoking Status: Never smoker second hand exposure: No alcohol intake: never counseling provided: none substance use type: denies use current occupational status: retired Travel in the last 8 weeks: None household members: spouse housing: house current occupational exposures/hazards: No caffeine: Yes Have you lived/traveled outside [place] in past 30 days?: No Contact w/someone who lives/traveled outside [place] past 30 days?: No Exposure to someone with infectious disease in past 14 days?: No Do you have a fever (greater than 100.4 F or 38 C)?: No Have you tested positive for COVID-19: No Exposed to someone with COVID-19 in past 14 days?: No Do you have a sore throat?: No Do you have a cough?: No Do you have any weakness?: No Do you have any diarrhea?: No Are you experiencing any unusual bleeding?: No Do you have any muscle aches/pain?: No Do you have any abdominal pain?: No Are you experiencing loss of taste or smell?: No [facility] Anesthesia Checklist Patient Identification Patient Identification: Arm Band and Verbal (Name & ) Structural Data Admitted From: Home Planned Operative Procedure/s: colonoscopy Consent for Planned Operative Procedure(s) Verified: Yes Verified Documents: Surgical Consent NPO Status Verified Time NPO: 00:00 Additional verifications Patient : No Anesthesia Reactions: No Hx Blood Transfusions: No Blood Transfusion Reaction: No Cephalosporin Allergy: No Previous Colonoscopy: Yes Cardiovascular Assessment Heart Sounds: S1 & S2 Pulse Strength: Strong Pulse Rhythm: Regular Peripheral Edema: No Airway Assessment Mallampati Score:: Class I C-Spine Mobility Assessed: Yes TMJ Mobility Assessed: Yes Dentition: Good Dentition Neurological Assessment Level of Consciousness: Awake, Alert and Appropriate Hx Seizures: No Numbness or tingling in extremities: No Anesthesia Plan Anesthesia Risk discussed: Yes Anesthesia Plan: Verified ASA Class: III Anesthesia Type: MAC
--- NOTE | 2024-12-23 08:08 | HMH.SCOPE ---
Procedure: Date: 12/23/24 Patient Date of :: 1950 Procedure Performed:: Colonoscopy with polypectomy Indications:: History of colon polyps Note: Most recent colonoscopy in March 2020 was somewhat complicated by lack of relaxation. Mild hemorrhoidal cushions and sigmoid diverticulosis noted. Bowel preparation was fair to moderate. Adenomatous polyps of the cecum and at 75 cm were excised. Performing Provider:: Clay Bradford MD Referring Provider:: . Sedation:: Monitored anesthesia care Procedure:: After informed consent was obtained the patient was taken to the endoscopy suite. Sedation ensued after the patient was transferred to the left lateral decubitus position. Pulse, blood pressure, and oxygen saturation were monitored throughout the procedure. Digital rectal exam revealed no significant abnormality. The colonoscope was placed in position. The entire colon was evaluated. The colonoscope was carefully removed and the patient was transferred to recovery in stable condition. Please see findings and specimens below for detail. Findings:: Bowel preparation fair Fairly severe spasticity Unchanged hemorrhoidal cushions Mild scattered sigmoid diverticulosis Polyps (see specimens) Specimens:: Small periappendiceal polyp (cold biopsy forceps) Adjacent cecal polyps (cold biopsy forceps) Lobulated sessile right colon polyp (cold snare and cold biopsy forceps) Recommendations:: Timing of repeat colonoscopy is pending pathology will likely be around 3 years secondary to history of polyps, size/nature of polyps, and spasticity. Complications:: No immediate Estimated blood obtained (mL): 1 Colonoscopy Component Colonoscopy Component Was a colonoscopy performed during today's procedure?: Yes Recommended follow up colonoscopy of at least 10 years?: No If no, follow up colonoscopy recommended in ___ years?: (See above) Reason for not recommending >/= 10 yr follow-up interval?: (See above)
[2024-12-23 08:12] VITALS: O2SAT 95
[2024-12-23 08:46] VITALS: BP 102/61; PULSE 58; RESP 16; TEMP 36.3; O2SAT 90
[2024-12-23 08:56] VITALS: BP 93/53; PULSE 50; RESP 16; O2SAT 96
[2024-12-23 09:06] VITALS: BP 103/56; PULSE 50; RESP 16; O2SAT 96
[2024-12-23 09:16] VITALS: BP 102/51; PULSE 56; RESP 16; O2SAT 96
== END 2024-12-23 09:20 | disposition home or self-care (01) ==
PROVIDERS: PCP Internal Medicine; Visit Provider Surgery
PROC: 0DJD8ZZ Inspection of Lower Intestinal Tract, Via Natural or Artificial Opening Endoscopic (ICD-10-PCS; CPT 45380; principal; 2024-12-23 08:30)
DX: K63.5 Polyp of colon (principal); D12.2 Benign neoplasm of ascending colon; K64.9 Unspecified hemorrhoids; K57.30 Diverticulosis of large intestine without perforation or abscess without bleeding; Z86.0100 Personal history of colon polyps, unspecified
CPT/HCPCS: 45380; 45385

== ENCOUNTER 2025-01-08 09:49 | Outpatient (CLI) | payer MEDICARE, OTHER, SELFPAY ==
--- NOTE | 2025-01-08 09:50 | MM_ITS ---
PROCEDURE INFORMATION: Exam: MG Bilateral Screening 3D Mammography Exam date and time: 01/08/2025 9:54 AM Age: 74 years old Clinical indication: Screening exam. TECHNIQUE: Imaging protocol: Bilateral Screening tomosynthesis and 2D mammography including computer-aided detection (CAD) when performed. COMPARISON: 1. MG MM DIG SCREENING MAMM BI W/CAD 12/06/2023 9:53 AM 2. MG MM DIG SCREENING MAMM BI W/CAD 11/17/2022 3:21 PM FINDINGS: MAMMOGRAPHY: Breast composition: There are scattered areas of fibroglandular density. Mass: No suspicious masses. Architectural distortion: None. Calcifications: No suspicious calcifications. Asymmetric density: None. Skin thickening: None. Axillary adenopathy: None. IMPRESSION: No mammographic evidence of malignancy. Annual screening is recommended unless otherwise clinically indicated. ASSESSMENT: BI-RADS Category 1: Negative.
== END 2025-01-08 23:59 | disposition home or self-care (01) ==
LOC: RAD 09:50
PROVIDERS: PCP Internal Medicine; Visit Provider Nurse Practitioner Obstetrics & Gynecology
DX: Z12.31 Encounter for screening mammogram for malignant neoplasm of breast (principal)
CPT/HCPCS: 77063; 77067

== ENCOUNTER 2025-01-13 15:12 | Outpatient (CLI) | payer MEDICARE, OTHER, SELFPAY ==
[2025-01-13 15:41] LABS: Basophils # 0.1 K/mm3 (0-0.2); Eosinophils # 0.4 K/mm3 (0.0-0.4); Eosinophils % 5.5 % (0.1-12.0); Hematocrit 41.6 % (37.0-47.0); Hemoglobin 13.5 g/dL (12.2-16.2); Lymphocytes # 2.7 K/mm3 (0.7-4.5); Lymphocytes % 38.2 % (10-50); Mean Corpuscular HGB Conc 32.5 g/dL (31.8-35.4); Mean Corpuscular Hemoglobin 29.8 pg (27.0-31.2); Mean Corpuscular Volume 91.8 fl (81-99); Mean Platelet Volume 10.1 fl (7.4-10.4); Monocytes # 0.6 K/mm3 (0.1-1.0); Monocytes % 9.1 % (1.7-9.3); Neutrophils # 3.2 K/mm3 (1.8-7.8); Neutrophils % 46.1 % (37.0-80.0); Platelet Count 192 K/mm3 (142-424); Red Blood Count 4.53 M/mm3 (4.20-5.40); Red Cell Distribution Width 13.1 % (11.5-17.5)
--- NOTE | 2025-01-13 15:53 | ECG_ITS ---
APPROVED REPORT Exam: Resting ECG HR:55 bpm ECG Measurements Heart Rate 55 AXES MI 187 P 51 QRSd 106 QRS -20 QT 440 T 6 QTc 428 Conclusion SINUS BRADYCARDIA LOW QRS VOLTAGE IN PRECORDIAL LEADS [QRS DEFLECTION < 1.0 mV IN CHEST LEADS] POSSIBLE ANTERIOR MYOCARDIAL INFARCTION , PROBABLY OLD [30 ms Q WAVE IN V3/V4, OR R < 0.2 mV IN V4] BORDERLINE ECG UNCONFIRMED REPORT Electronically signed by : Umesh Sheriff MD 01/14/2025 20:58:58
[2025-01-13 16:06] LABS: Albumin Level 4.3 g/dl (3.5-5.0); Chloride 105 mmol/L (98-107); Sodium 140 mmol/L (136-145)
[2025-01-13 16:08] LABS: Blood Urea Nitrogen 21 mg/dl (7-17); Estimated Glomerular Filt Rate 70 ml/min (>60); GFR (African American) 85 ML/MIN (>60)
[2025-01-13 16:09] LABS: Alanine Aminotransferase 29 U/L (12-78); Albumin/Globulin Ratio 1.7 (1.1-1.8); Alkaline Phosphatase 92 U/L (38-126); Aspartate Amino Transferase 37 U/L (14-36); Bilirubin,Total 0.2 mg/dl (0.2-1.3); Calcium 9.1 mg/dl (8.4-10.2); Carbon Dioxide 29 mmol/L (22.0-30.0); Globulin 2.6 g/dL (1.3-3.2); Glucose 92 mg/dl (74-100); Total Protein,Serum 6.9 g/dl (6.3-8.2)
== END 2025-01-13 23:59 | disposition home or self-care (01) ==
LOC: PREOP 15:14
PROVIDERS: PCP Internal Medicine; Visit Provider Nurse Practitioner Obstetrics & Gynecology
DX: Z01.810 Encounter for preprocedural cardiovascular examination (principal); R00.1 Bradycardia, unspecified; R94.31 Abnormal electrocardiogram [ECG] [EKG]; R93.89 Abnormal findings on diagnostic imaging of other specified body structures
CPT/HCPCS: 80053; 85025; 93005

== ENCOUNTER 2025-01-15 08:24 | Day surgery (SDC) | payer MEDICARE, OTHER, SELFPAY ==
[2025-01-13 15:40] VITALS: BMI 40.1
[2025-01-15] VITALS (10 sets, daily range): BP systolic 111–151; BP diastolic 60–77; PULSE 47–56; RESP 16–18; TEMP 36.2–36.4; O2SAT 92–97
[2025-01-15] MEDS: LACTATED RINGERS 1000ML 1,000 ML 25 ML IV (10:09)
--- NOTE | 2025-01-15 10:20 | EXP.ANES.CKL ---
[facility] Disclaimer: The information contained in this section may have been updated after the patient was seen, as this information can be updated by other users. 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 Pre-op evaluation Dyspnea Abnormal ECG Urinary tract infection History of gastroesophageal reflux (GERD) Hypertension Surgical History Total knee replacement status History of tubal ligation History of appendectomy Family History Other Colon cancer Family history of diabetes mellitus Family history of myocardial infarction Social History (Updated 01/15/25 @ 09:54 by Sandra Alcala RN) Smoking Status: Never smoker second hand exposure: No alcohol intake: never counseling provided: none substance use type: denies use current occupational status: retired Travel in the last 8 weeks: None household members: spouse housing: house current occupational exposures/hazards: No caffeine: Yes Have you lived/traveled outside [place] in past 30 days?: No Contact w/someone who lives/traveled outside US past 30 days?: No Exposure to someone with infectious disease in past 14 days?: No Do you have a fever (greater than 100.4 F or 38 C)?: No Have you tested positive for COVID-19: No Exposed to someone with COVID-19 in past 14 days?: No Do you have a sore throat?: No Do you have a cough?: No Do you have any weakness?: No Are you experiencing any nausea/vomitting?: No Do you have any diarrhea?: No Are you experiencing any unusual bleeding?: No Do you have any muscle aches/pain?: No Do you have any abdominal pain?: No Are you experiencing loss of taste or smell?: No [facility] Anesthesia Checklist Patient Identification Patient Identification: Arm Band Structural Data Admitted From: Home Planned Operative Procedure/s: Hysteroscopy, D&C, Myosure, Polypectomy Consent for Planned Operative Procedure(s) Verified: Yes Verified Documents: Surgical Consent and History and Physical NPO Status Verified Time NPO: 00:00 Additional verifications Anesthesia Reactions: No Hx Blood Transfusions: No Blood Transfusion Reaction: No Airway Assessment Mallampati Score:: Class II C-Spine Mobility Assessed: Yes TMJ Mobility Assessed: Yes Dentition: Good Dentition Neurological Assessment Level of Consciousness: Awake, Alert and Appropriate Anesthesia Plan Anesthesia Risk discussed: Yes Anesthesia Plan: Verified ASA Class: III Anesthesia Type: General
[2025-01-15] MEDS: CLINDAMYCIN PHOSPHATE/D5W 900 MG/50 ML PIGGYBACK 100 MG IV (11:52)
[2025-01-15] MEDS: ROPIVACAINE 0.5% 30ML VIAL 150 MG (12:08)
--- NOTE | 2025-01-15 12:43 | P.PNANES_ITS ---
[facility] Anesthesia Record Part I Anesthesia Record I Intake, IV Amount: 700 Hydration: Adequate Estimated blood loss (mL): 15 Urine output (mL): 0 Blood Products used (#): none Blood Pressure: 122/67 SaO2: 93 Pulse Rate: 56 Airway Patency: Patent Respiratory Rate: 16 Temperature: 97.5 F Patient is:: Drowsy and Stable Stable to PACU at:: 12:45
--- NOTE | 2025-01-15 12:57 | EXP.OP.NOTE ---
Date of procedure: 01/15/25 Pre-op Diagnosis:: Postmenopausal bleeding, possible polyp Post-op Diagnosis:: Postmenopausal bleeding, polyp Procedure performed:: Hysteroscopy with MyoSure Surgeon:: Alfred Crow MD Lotus Notes Developer(s):: None ADVERTISEMENT DISTRIBUTOR:: Laura Mauricio Anesthesia: LMA Estimated blood loss (mL): 25 Clinical Note:: She is a 74-year-old lady who had some postmenopausal bleeding. An ultrasound showed a thickened endometrium. We attempted an endometrial biopsy in the office but I was not able to get into the endometrial cavity. As result of that she was offered hysteroscopy, MyoSure removal of her polyp. Operative findings:: She had an anteverted uterus that sounded to 8 cm. The endometrium was slightly lush on the anterior and posterior left side of the uterus. There appeared to be a polyp that was not sessile or pedunculated attached to the anterior uterine wall just before the right tubal ostia. Operative note:: She states the operating room where LMA anesthesia was found to be adequate. She is prepped of normal sterile fashion lithotomy position. A weighted speculum is placed in the vagina and the anterior lip of the cervix was grasped with a tenaculum. Using Leo dilators I dilated the cervix up to approximately 5 mm. Then using the MyoSure device I inserted this into the uterine cavity. The findings were previously dictated. The MyoSure device was then used to shave off the polyp from the anterior wall of the uterus as well as shave most of the endometrium. At the end of the procedure I then injected 30 cc of 0.25% ropivacaine at the 3:00, 5:00, 7:00, and 9:00 positions of the cervix. She tolerated the procedure well and was taken recovery room in excellent condition. All sponge, instrument counts were correct. The estimated blood loss was less than 25 cc. Condition: stable Disposition: PACU Specimens:: Endometrial sampling and endometrial polypectomy Complications:: None
--- NOTE | 2025-01-15 13:35 | EXP.ANES.II ---
[facility] Anesthesia Record Part II Anesthesia Record Part II Discharge Time: 13:10 Destination: Medical Surgical Department PACU nurse assessment reviewed?: Yes Patient Condition:: Good Anesthesia Complications:: None Swallowing reflex intact?: Yes Airway Patency: Patent Cyanosis?: No Blood Pressure: 128/60 SaO2: 94 Respiratory Rate: 16 Pulse Rate: 52 Temperature: 97.5 F Mental Status: Alert & Oriented Pain level:: 0 Nausea and/or vomitting:: None Intake, IV Amount: 700 Hydration: Adequate
== END 2025-01-15 13:55 | disposition home or self-care (01) ==
PROVIDERS: PCP Internal Medicine; Visit Provider Nurse Practitioner Obstetrics & Gynecology
PROC: 0UDB8ZZ Extraction of Endometrium, Via Natural or Artificial Opening Endoscopic (ICD-10-PCS; CPT 58558; principal; 2025-01-15 10:30)
DX: N93.9 Abnormal uterine and vaginal bleeding, unspecified (principal); N84.0 Polyp of corpus uteri
CPT/HCPCS: 58558; 88305; 96374; J0736; J1100; J2405; J3010; J7120

== ENCOUNTER 2025-06-10 16:42 | Outpatient (CLI) | payer MEDICARE, OTHER, SELFPAY ==
[2025-06-10 14:15] LABS: Alanine Aminotransferase 25 U/L (12-78); Albumin Level 4.1 g/dl (3.5-5.0); Albumin/Globulin Ratio 1.7 (1.1-1.8); Alkaline Phosphatase 110 U/L (38-126); Anion Gap 9.4 mEq/L (5-15); Aspartate Amino Transferase 28 U/L (14-36); Bilirubin,Total 0.7 mg/dl (0.2-1.3); Blood Urea Nitrogen 20 mg/dl (7-17); Calcium 9.4 mg/dl (8.4-10.2); Carbon Dioxide 30 mmol/L (22.0-30.0); Chloride 106 mmol/L (98-107); Cholesterol 173 mg/dl (140-200); Creatinine,Serum 0.80 mg/dl (0.52-1.04); Estimated Glomerular Filt Rate 70 ml/min (>60); GFR (African American) 85 ML/MIN (>60); Globulin 2.4 g/dL (1.3-3.2); Glucose 85 mg/dl (74-100); HDL Cholesterol 41 mg/dl (40-60); Potassium 4.4 mmoL/L (3.5-5.1); Sodium 141 mmol/L (136-145); Total Protein,Serum 6.5 g/dl (6.3-8.2); Triglycerides 116 mg/dl (30-150)
--- OUTSIDE RECORDS SUMMARY | 2025-06-10 16:43 | XMS_ITS | Clinical Summary ---
Author Organization [facility] Address [address] [place] [address] Care Team Providers Care Degreasing Wheel Operator Name Role Phone Rk Sanderson MD Primary Care Provider [phone] Social History Tobacco Use Types Packs/Day Years Used Date Smoking Tobacco: Never Assessed Comments Unknown Sex and Gender Information Value Date Recorded Sex Assigned at Not on file Legal Sex Female 6:57 PM EDT Gender Identity Not on file Sexual Orientation Not on file Plan of Treatment Upcoming Encounters Date Type Department Care Team (Late st Contact Info) Description 10/21/2025 11:00 AM EST Ovarian Cancer Screening [facility] Gynecology [address] [place] [address] Health Maintenance Due Date Last Done Comments [facility]-Bone Density Scan 1950 [facility]-Depression Screening 1950 [facility]-Hepatitis C Screening 1950 [facility]-Infant/Child/Adol SDOH Screenings 1950 [facility]- SDOH Screenings 1967 [facility]-Adult SDOH Screenings 1967 [facility]-DTaP,Tdap,and Td Vaccine s (1 - Tdap) 1968 CT Colonography 1994 Colonoscopy 1994 FIT-DNA 1994 FIT 1994 FOBT 1994 Sigmoidoscopy 1994 [facility]-Colorectal Cancer Screening 1994 [facility]-Pneumococcal Vaccine: 50 + Years (2 of 2 - PPSV23) 01/11/2019 01/11/2018 [id number] Vaccine ( season) 2024 12/21/2020, 11/19/2020 [facility]-RSV Vaccine: 60+ Years o r (1 - 1-dose 75+ series) 2024 [facility]-Influenza Vaccine (#1) 2025 01/11/2018 [facility]-Zoster Vaccines Completed 08/27/2023, 05/25/2023 HPV Vaccines Aged Out No longer eligi ble based on patient's age to complete this topic [facility]-HIB Vaccines Aged Out No longer e ligible based on patient's age to complete this topic [facility]-Hepatitis A Vaccines Aged Out No longer eligible based on patient's age to complete this topic [facility]-IPV Vaccines Aged Out No longer e ligible based on patient's age to complete this topic [facility]-Rotavirus Vaccines Aged Out No lo nger eligible based on patient's age to complete this topic Care Teams Degreasing Wheel Operator Relationship Specialty Start Date End Date Rk Sanderson MD [address] [place] [address] [address] [place] [id number] PCP - General 10/25/21
== END 2025-06-10 23:59 | disposition home or self-care (01) ==
LOC: LAB.DROPOF 16:42
PROVIDERS: PCP Internal Medicine; Visit Provider Internal Medicine
DX: K21.9 Gastro-esophageal reflux disease without esophagitis (principal); I10 Essential (primary) hypertension; E78.49 Other hyperlipidemia; E78.5 Hyperlipidemia, unspecified
CPT/HCPCS: 80053; 80061